=== PATIENT | male | born 1950 | race Caucasian/White ===

== ENCOUNTER → 2020-09-27 09:17 | Outpatient (BNVA) | payer MEDICARE, SELFPAY | PROVIDERS: PCP Internal Medicine Endocrinology, Diabetes & Metabolism; Visit Provider Urology | DX: N40.1 Benign prostatic hyperplasia with lower urinary tract symptoms (principal); N13.8 Other obstructive and reflux uropathy; R35.1 Nocturia; R39.12 Poor urinary stream | CPT/HCPCS: Q3014 ==

== ENCOUNTER → 2021-09-27 09:28 | Outpatient (BNVA) | payer MEDICARE, SELFPAY | PROVIDERS: Visit Provider Urology | DX: R39.12 Poor urinary stream (principal); R35.1 Nocturia; N40.1 Benign prostatic hyperplasia with lower urinary tract symptoms; N13.8 Other obstructive and reflux uropathy | CPT/HCPCS: 51798; 99212 ==

== ENCOUNTER → 2022-10-31 08:46 | Outpatient (BNVA) | payer MEDICARE, SELFPAY | PROVIDERS: PCP Internal Medicine Endocrinology, Diabetes & Metabolism; Visit Provider Urology | DX: N40.1 Benign prostatic hyperplasia with lower urinary tract symptoms (principal); N13.8 Other obstructive and reflux uropathy; R35.1 Nocturia; Z79.899 Other long term (current) drug therapy | CPT/HCPCS: 51798; 99212 ==

== ENCOUNTER 2023-11-03 08:22 | Outpatient (AMB) | payer MEDICARE, SELFPAY ==
--- NOTE | 2023-11-03 08:29 | A.OFFVIS_ITS ---
Intake Intake Visit Reasons: 1Y PSA(set)Confirmed Intake Note: Patient is Present for Follow Up PSA/PVR Urology Medication: Tamsulosin Antibiotic Allergies: None Blood Thinners: None Confirmed Pharmacy: [facility] Patient states no medication changes other than Lisinipril which he is awaiting on Provider on that medication. PVR: 50 Allergies No Known Allergies Allergy (Verified 11/03/23 08:33) Medication List - Last Reconciled 11/03/23 by Hugo Coats MD amlodipine 5 mg PO DAILY atorvastatin 80 mg PO DAILY carvedilol 12.5 mg PO BID duloxetine 60 mg PO DAILY fluticasone propionate 50 mcg/actuation intranasal glipizide 5 mg PO BID glipizide ER 2.5 mg PO DAILY glipizide ER mg PO ibuprofen 800 mg PO TID levetiracetam 500 mg PO TID lisinopril 40 mg PO DAILY metformin 1,000 mg PO BID nitroglycerin mg sublingual pantoprazole 40 mg PO DAILY sitagliptin phosphate 100 mg PO DAILY tamsulosin 0.8 mg (2 x 0.4 mg) PO BEDTIME 90 days triamcinolone acetonide 0.1% appl topical BID HPI HPI Comments History of Present Illness Details Beryl OSHEA is a very pleasant male. He is a patient of Dr Ruiz. He is seen for the following urologic conditions - lower urinary tract symptoms Yearly review Continues with tamsulosin 0.8 mg Effective emptying PVR 50cc Primary care is retiring JAMES 1+ Lower Urinary Tract Symptoms: Background diabetes Current visit is for further evaluation of, lower urinary tract symptoms, predominate obstructive symptoms. Current treatment includes medication, alpha jessica, tamsulosin. Prostate Symptom Score 1/17 , Moderate (9-19), Bother 3 09/18 , Mild (0-8), Bother 2 - 09/20 Mild Symptoms include /18 , weak stream, nocturia (>2), and are stable 09/18 , weak stream, nocturia (>2), and are stable. Prior Prostate Score unknown. PSA < 2.5, 09/19 0.2. 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 Diabetes mellitus, type II Insomnia Hypercholesterolemia Prostate nodule Microscopic hematuria Erectile dysfunction Kidney cysts Weak urinary stream Benign prostatic hyperplasia with lower urinary tract symptoms Nocturia Surgical History History of surgery Review of Systems Const Denies chills and Denies fever(s) Card Reports no additional complaints and Denies syncope Resp Denies cough GI Denies abdominal pain and Denies heartburn Reports as per HPI and Denies change in libido Neuro Denies syncope Psych Denies change in libido Endo Denies change in libido Physical Exam Const General: cooperative, healthy appearing, comfortable and no acute distress Orientation/consciousness: patient oriented x3 HEENT Face and sinus: Yes normal facial exam Mouth: moist mucous membranes Neck Neck: Yes normal visual inspection, Yes full ROM and Yes trachea midline Chest Chest palpation & inspection: normal inspection of the chest Resp Effort & Inspection: normal respiratory effort, able to speak in complete sentences and no respiratory distress GI Inspection: Yes normal to inspection Rectal Exam - Male: Yes normal sphincter tone and Yes prostate normal Male General Exam: Yes normal external exam Penis: normal penis and circumcised Meatus: meatus normal Scrotum: scrotum normal Testes: Testes normal Back/Spine/Pelvis Cervical Spine: normal cervical lordosis Thoracic/Lumbar Spine: thoracic and lumbar spine normal to inspection Skin General skin exam: no rashes or lesions noted Neuro General: patient oriented x3, gait normal, tone normal and moves all extremities Extrem General: Yes normal to inspection and Yes capillary refill normal Office Procedures Post Void Residual Post Residual Void Post Void Residual (PVR): 50 59949-Wfju Void Residual by ultrasound Assessment & Plan Assessment & Plan (1) Weak urinary stream: Code(s): R39.12 - Poor urinary stream (2) Nocturia more than twice per night: Code(s): R35.1 - Nocturia (3) BPH w urinary obs/LUTS: Code(s): N40.1 - Benign prostatic hyperplasia with lower urinary tract symptoms; N13.8 - Other obstructive and reflux uropathy Plan Twelve month follow-up Orders: Orders Prostate Specific Antigen 364 Days N13.8 - Other obstructive and reflux uropathy, N40.1 - Benign prostatic hyperplasia with lower urinary tract symptoms AMB Post Void Residual by ultrasound Today N13.8 - Other obstructive and reflux uropathy, N40.1 - Benign prostatic hyperplasia with lower urinary tract symptoms Patient Instructions: Imaging studies, laboratory and physical exam results were discussed and reviewed in detail. No major barriers to patient understanding were identified. An opportunity to ask questions regarding the treatment plan was provided. All questions were answered. The patient expressed understanding and agreement with the above treatment plan. The patient is aware they should contact our office by phone for worsening of their current condition or the appearance of new urologic symptoms. Compliance is encouraged with any medications and followup testing that is ordered. It is a privilege to participate in the urologic care of your patient. If you have any questions or concerns regarding treatment for the above conditions, or other urologic issues, please do not hesitate to contact me. The office telephone contact is [phone]. This note is constructed using voice recognition software. While every effort has been made to ensure accuracy affiliate marketing specialist errors may have been included. Yours sincerely, Dr Hugo Coats MD, PADILLA [facility] - Urology Providers of Expert, Compassionate Care for the Genitourinary System Coding Level of Care Code Est Pt Level 4 (44438) Diagnoses Weak urinary stream R39.12 Nocturia more than twice per night R35.1 BPH w urinary obs/LUTS N40.1; N13.8 CPT Codes Post Residual Void - PVR CPT Code: 27950-Skjc Void Residual by ultrasound ([id number])
== END 2023-11-03 08:57 | disposition home or self-care (01) ==
PROVIDERS: Visit Provider Urology
DX: N40.1 Benign prostatic hyperplasia with lower urinary tract symptoms (principal); R39.12 Poor urinary stream; R35.1 Nocturia; N13.8 Other obstructive and reflux uropathy
CPT/HCPCS: 99213

== ENCOUNTER → 2023-11-03 08:22 | Outpatient (BNVA) | payer MEDICARE, SELFPAY | PROVIDERS: Visit Provider Urology | DX: N40.1 Benign prostatic hyperplasia with lower urinary tract symptoms (principal); N13.8 Other obstructive and reflux uropathy; R39.12 Poor urinary stream; R35.1 Nocturia | CPT/HCPCS: 51798; 99212 ==

== ENCOUNTER 2024-11-03 08:23 | Outpatient (AMB) | payer MEDICARE, SELFPAY ==
--- NOTE | 2024-11-03 08:25 | MHC.OFFVIS ---
Intake Visit Reasons: 1y/PVR Intake Note: Pt presents to the office today for a 1 year follow up/PVR. Allergies No Known Allergies Allergy (Verified 11/03/24 08:25) HPI Comments Details: Beryl OSHEA is a very pleasant male. He is a patient of Dr Saleh. He is seen for the following urologic conditions - lower urinary tract symptoms Yearly review Continues with tamsulosin 0.8 mg Effective emptying PVR 0 cc Has new Primary Care seeing Dr. Aguilar Low PSA Lower Urinary Tract Symptoms: Background diabetes Current visit is for further evaluation of, lower urinary tract symptoms, predominate obstructive symptoms. Current treatment includes medication, alpha jessica, tamsulosin. Prostate Symptom Score 09/16 , Moderate (9-19), Bother 3 09/18 , Mild (0-8), Bother 2 - 09/20 Mild Symptoms include 09/17 , weak stream, nocturia (>2), and are stable 09/18 , weak stream, nocturia (>2), and are stable. Prior Prostate Score unknown. 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 Diabetes mellitus, type II Insomnia Hypercholesterolemia Prostate nodule Microscopic hematuria Erectile dysfunction Kidney cysts Weak urinary stream Benign prostatic hyperplasia with lower urinary tract symptoms Nocturia Surgical History History of surgery Review of Systems Const Denies chills and Denies fever(s) Card Reports no additional complaints and Denies syncope Resp Denies cough GI Denies abdominal pain and Denies heartburn Reports as per HPI and Denies change in libido Neuro Denies syncope Psych Denies change in libido Endo Denies change in libido Physical Exam Const General: cooperative, healthy appearing, comfortable and no acute distress Orientation/consciousness: patient oriented x3 HEENT Face and sinus: Yes normal facial exam Mouth: moist mucous membranes Neck Neck: Yes normal visual inspection, Yes full ROM and Yes trachea midline Chest Chest palpation & inspection: normal inspection of the chest Resp Effort & Inspection: normal respiratory effort, able to speak in complete sentences and no respiratory distress GI Inspection: Yes normal to inspection Back/Spine/Pelvis Cervical Spine: normal cervical lordosis Thoracic/Lumbar Spine: thoracic and lumbar spine normal to inspection Skin General skin exam: no rashes or lesions noted Neuro General: patient oriented x3, gait normal, tone normal and moves all extremities Extrem General: Yes normal to inspection and Yes capillary refill normal Office Procedures Post Void Residual Post Residual Void Post Void Residual (PVR): 0 45116-Fykt Void Residual by ultrasound Results AMB Urinalysis, Automated UA Leukoctes 0 Hector/uL Last Edit by Christy Vivar CMA on 11/03/24 08:33 UA Nitrite Negative Last Edit by Christy Vivar CMA on 11/03/24 08:33 UA Urobilinogen 0.2 mg/dL Last Edit by Christy Vivar CMA on 11/03/24 08:33 UA Protein 30 mg/dL Last Edit by Christy Vivar CMA on 11/03/24 08:33 UA pH 5.5 Last Edit by Christy Vivar CMA on 11/03/24 08:33 UA Blood 0 Yifan/uL Last Edit by Christy Vivar CMA on 11/03/24 08:33 UA Specific [place] 1.030 Last Edit by Christy Vivar CMA on 11/03/24 08:33 UA Ketone Positive Last Edit by Christy Vivar CMA on 11/03/24 08:33 UA Bilirubin 1 mg/dL Last Edit by Christy Vivar CMA on 11/03/24 08:33 UA Glucose 0 mg/dL Last Edit by Christy Vivar CMA on 11/03/24 08:33 Results Reviewed Results Reviewed: Laboratory Last Values Urine pH (Auto) 5.5 11/03/24 08:27 Specific [place] (Auto) 1.030 11/03/24 08:27 Urine Protein (Auto) 30 mg/dL 11/03/24 08:27 Glucose (UA)(Auto) 0 mg/dL 11/03/24 08:27 Urine Ketones (Auto) Positive 11/03/24 08:27 Urine Blood (Auto) 0 Yifan/uL 11/03/24 08:27 Urine Nitrite (Auto) Negative 11/03/24 08:27 Urine Bilirubin (Auto) 1 mg/dL 11/03/24 08:27 Urine Urobilinogen (Auto) 0.2 mg/dL 11/03/24 08:27 Leukocyte Esterase (Auto) 0 Hector/uL 11/03/24 08:27 Assessment & Plan Assessment & Plan (1) BPH w urinary obs/LUTS: Code(s): N40.1 - Benign prostatic hyperplasia with lower urinary tract symptoms; N13.8 - Other obstructive and reflux uropathy Category: Medical (2) Nocturia more than twice per night: Code(s): R35.1 - Nocturia Category: Medical Plan Twelve month follow-up PVR office Orders: Orders AMB Urinalysis Automated Today Z13.9 - Encounter for screening, unspecified AMB Post Void Residual by ultrasound Today N13.8 - Other obstructive and reflux uropathy, N40.1 - Benign prostatic hyperplasia with lower urinary tract symptoms Patient Instructions: This note is constructed using voice recognition software. While every effort has been made to ensure accuracy landing signal officer errors may have been included. Imaging studies, laboratory and physical exam results were discussed and reviewed in detail. No major barriers to patient understanding were identified. An opportunity to ask questions regarding the treatment plan was provided. All questions were answered. The patient expressed understanding and agreement with the above treatment plan. The patient is aware they should contact our office by phone for worsening of their current condition or the appearance of new urologic symptoms. Compliance is encouraged with any medications and followup testing that is ordered. It is a privilege to participate in the urologic care of your patient. If you have any questions or concerns regarding treatment for the above conditions, or other urologic issues, please do not hesitate to contact me. The office telephone contact is [phone]. Sincerely, Dr Hugo Coats MD, PADILLA [facility] - Urology Compassionate Specialist Care for the Genitourinary System Coding Level of Care Code Est Pt Level 4 (64113) Diagnoses BPH w urinary obs/LUTS N40.1; N13.8 Nocturia more than twice per night R35.1 CPT Codes Post Residual Void - PVR CPT Code: 75284-Rosr Void Residual by ultrasound ([id number])
--- OUTSIDE RECORDS SUMMARY | 2024-11-03 08:47 | XMS_ITS | Patient Health Record ---
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 Name Role Phone Gabriella Ramey MD, Keith Primary Care Provider Unavail able Suzette Ortega Unavailable [phone] Allergies Allergen (clinical drug ingredient) Drug/Non Drug Allergy documented on EMR Reaction Allergy Type Onset Date Status bee pollen Bee Pollen Unknown Drug Allergy Activ e Bee Sting Unknown Allergy Active Results Component Value Reference Range Notes HEMOGLOBIN A1C (GLYCOHEMOGLO BIN) Reviewed date:06/14/2024 08:06:21 AM Interpretation: Performing Lab: Notes/Report: TOTAL HEMOGLOBIN (HGBA1C) 7.3 HEMOGLOBIN A1C (GLYCOHEMOGLO BIN) Reviewed date:06/14/2024 08:03:13 AM Interpretation: Performing Lab: Notes/Report: TOTAL HEMOGLOBIN (HGBA1C) 7.3 HEMOGLOBIN A1C (GLYCOHEMOGLO BIN) Reviewed date:09/13/2024 08:08:13 AM Interpretation: Performing Lab: Notes/Report: HEMOGLOBIN A1C % (HH) 7.3 Reason For Referral No Information Medications Medication SIG (Take, Route, Frequency, Duration) Notes Start Date End Date Status Metformin & Diet Manage Prod Active Clopidogrel Bisulfate Not-Taking Januvia 100 MG 1 tablet Orally Once a day Active oxyCODONE ER Not-Skyler ing Aspirin Active Spironolactone 25 MG 1 tablet Orally Onc e a day Active Amlodipine & Diet Manage Prod Active Pantoprazole Sodium 40 MG Orally Active DULoxetine HCl 60 MG Orally Active Farxiga 10 MG 1 tablet Orally Once a day Not-Taking Carvedilol 12.5 MG Orally A ctive Entresto 49-51 MG 1 tablet Orally Twic e a day Not-Taking Iron Active Lisinopril 40 MG 1 tablet Orally Once a day Not-Taking glipiZIDE 5 MG as directed Orally twice a day Active Cephalexin 500 MG 1 capsule Orally anali ry 12 hours for 10 days Not-Taking Extra Depth Orthopedic Shoes (1 Pair) with Customized Heat Molded Multidensity Innersoles (3 Pair) as directed Dx: NIDDM/Polyneuropathy (E11.42), Hammertoe Foot Deformity (M20.41,M20.42), Preulcerative Skin Lesion(s) (L85.1 Active Atropine Sulfate Act ruma Extra Depth Orthopedic Shoes (1 Pair) with Customized Heat Molded Multidensity Innersoles (3 Pair) as directed Dx: NIDDM/Polyneuropathy (E11.42), Hammertoe Foot Deformity (M20.41,M20.42), Preulcerative Skin Lesion(s) (L85.1 Active Atorvastatin Calcium 80 MG 1 tablet Orally Once a day Active Tamsulosin HCl Activ e Carisoprodol 350 MG Orally Active Immunizations Vaccine Route Administration Date Status Comme nts COVID-19 Moderna Vaccine Unknown 07/23/2021 Administered 1st 10/29/2020 2nd 11/27/2020 Influenza Unknown 04/16/2017 Administered Influenza Unknown 05/27/2019 Administered Influenza Unknown 07/16/2023 Administered Social History Tobacco Use: Social History Observation Description Date Details (start date - stop date) Former Smoker NA - NA Tobacco Use/Smoking Question Answer Notes Are you a: former smoker Additional Findings: Tobacco Non-User Cu rrent non-smoker,Ex-moderate cigarette smoker (10-19/day) Alcohol Screen Question Answer Notes Did you have a drink contain ing alcohol in the past year? Yes How often did you have a dri nk containing alcohol in the past year? Monthly or less (1 point) Points 1 Interpretation Negative Tobacco use other than smoking: Question Answer Notes Are you an other tobacco user? No Problems Problem Type SNOMED Code ICD Code Onset Dates Problem Status W/U Status Risk Notes Problem Acquired hammer toe of right foot (437361527414789 5) Other hammer toe(s) (acquired), right foot (M20.41) Active confirmed Response to treatment - Unchanged Problem Acquired hallux valgus (51567100) Hallux valgus (acquired), left foot (M20.12) Active confirmed Problem Acquired hammer toe of left foot (583850744955866 3) Other hammer toe(s) (acquired), left foot (M20.42) Active confirmed Response to treatment - Unchanged Problem Localized, primary osteoarthritis of the ankle and/or foot (399058970) Primary osteoarthritis, right ankle and foot (M19.071) Active confirmed Problem Localized, primary osteoarthritis of the ankle and/or foot (736768436) Primary osteoarthritis, left ankle and foot (M19.072) Active confirmed Problem Acquired hallux valgus (32938028) Hallux valgus (acquired), right foot (M20.11) Active confirmed Problem Ulcer of toe (464069263) Non-pressure chronic ulcer of other part of left foot limited to breakdown of skin (L97.521) Active confirmed Problem Polyneuropathy due to type 2 diabetes mellitus (433358361) Type 2 diabetes mellitus with diabetic polyneuropathy (E11.42) Active confirmed Problem Ulcer of toe of right foot (disorder) (513478528981729 01) Skin ulcer of toe of right foot, limited to breakdown of skin (L97.511) Active confirmed Problem Osteoarthritis of midtarsal joint of right foot (991470006120261 6) Osteoarthritis of midtarsal joint of right foot (M19.071) Active confirmed Vital Signs Blood pressure diastolic 80 mm Hg 09/13/2024 Height 6ft in 09/13/2024 Blood pressure systolic 130 mm Hg 09/13/2024 Weight 212 lbs 09/13/2024 BMI 28.75 kg/m2 09/13/2024 Procedures Procedure Date Ordered Date Performed Result Body Sit e 80207-VLLNIPP NAIL, 6 OR MORE 12/02/2023 N/A 90854-Jfrhmdur Plate 12/02/2023 N/A 32570-Hugttxrr Plate Each Additional 12/02/2023 N/A 62972-STVZ SKIN LESIONS, OVER 4 12/02/2023 N/A 39800-XNYUCKP NAIL, 6 OR MORE 03/15/2024 N/A 15587-CBJG SKIN LESIONS, OVER 4 03/15/2024 N/A 99135-YDJAQHW NAIL, 6 OR MORE 06/14/2024 N/A 09280-Nrhljruf Plate 06/14/2024 N/A 91701-PWNB SKIN LESIONS, OVER 4 06/14/2024 N/A 07308-VNGILVE NAIL, 6 OR MORE 09/13/2024 N/A 52221-NSHQ SKIN LESIONS, OVER 4 09/13/2024 N/A Encounters Encounter Location Date Provider Diagnosis [address] [place] [address] 12/02/2023 Suzette Black Type 2 diabetes wilner itus with diabetic polyneuropathy E11.42 ; Other hammer toe(s) (acquired), right foot M20.41 ; Tinea unguium B35.1 ; Other hammer toe(s) (acquired), left foot M20.42 and Ingrown nail L60.[address] [place] [address] 03/15/2024 Suzette Black Type 2 diabetes wilner itus with diabetic polyneuropathy E11.42 ; Tinea unguium B35.1 ; Pain in right foot M79.671 ; Pain in right ankle and joints of right foot M25.571 ; Bursitis of right foot M77.51 and 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 [place] [address] 06/14/2024 Suzette Black Type 2 diabetes wilner itus with diabetic polyneuropathy E11.42 ; Tinea unguium B35.1 ; Pain in right foot M79.671 ; Pain in right ankle and joints of right foot M25.571 ; Bursitis of right foot M77.51 ; 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 and Ingrown nail L60.[address] [place] [address] 09/13/2024 Suzette Black Type 2 diabetes wilner itus with diabetic polyneuropathy E11.42 and Tinea unguium B35.1 Assessments Encounter Date Diagnosis (ICD Code) Assessment Notes Treatment Notes Treatment Clinical Notes Section Notes 12/02/2023 Other hammer toe(s) (acquired), right foot (ICD-10 - M20.41) Response to treatment - Unchanged Patient Educated with: DIABETIC FOOT CARE INSTRUCTIONS. pdf (DIABETIC FOOT CARE INSTRUCTIONS. pdf) 12/02/2023 Type 2 diabetes mellitus with diabetic polyneuropathy (ICD-10 - E11.42) 03/15/2024 Tinea unguium (ICD-10 - B35.1) 03/15/2024 Type 2 diabetes mellitus with diabetic polyneuropathy (ICD-10 - E11.42) 06/14/2024 Tinea unguium (ICD-10 - B35.1) 06/14/2024 Type 2 diabetes mellitus with diabetic polyneuropathy (ICD-10 - E11.42) 09/13/2024 Tinea unguium (ICD-10 - B35.1) 09/13/2024 Type 2 diabetes mellitus with diabetic polyneuropathy (ICD-10 - E11.42) 06/14/2024 Pain in right foot (ICD-10 - M79.671) 03/15/2024 Pain in right foot (ICD-10 - M79.671) 12/02/2023 Tinea unguium (ICD-10 - B35.1) 12/02/2023 Other hammer toe(s) (acquired), left foot (ICD-10 - M20.42) Response to treatment - Unchanged 03/15/2024 Pain in right ankle and joints of right foot (ICD-10 - M25.571) 06/14/2024 Pain in right ankle and joints of right foot (ICD-10 - M25.571) 03/15/2024 Bursitis of right foot (ICD-10 - M77.51) 06/14/2024 Bursitis of right foot (ICD-10 - M77.51) 12/02/2023 Ingrown nail (ICD-10 - L60.0) 06/14/2024 Osteoarthritis of midtarsal joint of right foot (ICD-10 - M19.071) 03/15/2024 Osteoarthritis of midtarsal joint of right foot (ICD-10 - M19.071) 06/14/2024 Ingrown nail (ICD-10 - L60.0) 03/15/2024 Other Plan Of Treatment Pending Test Test Name Order Date 93509-TOAKAXA NAIL, 6 OR MORE 10/25/2019 86345-AVNXAHT NAIL, 6 OR MORE 04/24/2021 36272-YHWTVMH NAIL, 6 OR MORE 08/09/2021 74668-WSILEUR NAIL, 6 OR MORE 11/22/2021 79938-EJLSLQW NAIL, 6 OR MORE 02/25/2022 28864-XRCENZL NAIL, 6 OR MORE 11/25/2022 95029-CKVBCSF NAIL, 6 OR MORE 02/24/2023 09757-FHBNZNB NAIL, 6 OR MORE 05/26/2023 06282-QXURLZT NAIL, 6 OR MORE 09/02/2023 69006-UUCDDVF NAIL, 6 OR MORE 12/02/2023 90558-CQLRNUT NAIL, 6 OR MORE 03/15/2024 96140-BPPWCNR NAIL, 6 OR MORE 06/14/2024 34645-EPPBNMB NAIL, 6 OR MORE 09/13/2024 41613-Cduomrby Plate 02/24/2023 72106-Hnilfnyj Plate 06/14/2024 71175-Kfpqyrvy Plate 12/02/2023 24918-Utdxvicd Plate 11/25/2022 95829-Ebxkgpjq Plate 08/09/2021 59283-Heqnrorn Plate 02/25/2022 14769-Umwscxqt Plate 04/24/2021 76438-Tagngmmo Plate Each Additional 25313-Ygtlyyxa Plate Each Additional 10/2023 81796- Debride <25 sq cm 04/07/2023 51820- Debride <25 sq cm 11/22/2021 38842- Debride <25 sq cm 05/07/2021 40682-HHSC SKIN LESIONS, OVER 4 05/26/20 23 01657-AJVB SKIN LESIONS, OVER 4 12/02/19 24 21108-JWYS SKIN LESIONS, OVER 4 09/02/19 24 69834-EWCU SKIN LESIONS, OVER 4 03/15/20 24 92363-EMVP SKIN LESIONS, OVER 4 06/14/20 24 94137-SVFY SKIN LESIONS, OVER 4 09/13/19 25 48095-WYKP SKIN LESIONS, 2 TO 4 02/25/20 23 96759-KZCR SKIN LESIONS, 2 TO 4 08/09/20 21 79971-ENCM SKIN LESIONS, 2 TO 4 11/23/19 22 08334-VQBS SKIN LESIONS, 2 TO 4 10/25/19 41823-YCSZ SKIN LESIONS, 2 TO 4 04/24/20 21 67441-SCOG SKIN LESIONS, 2 TO 4 11/26/19 23 63284-ZDQN SKIN LESIONS, 2 TO 4 02/26/20 22 Next Appt Details Provider Name:Suzette Ortega , 12/20/2024 08:00:00 AM, [address], [place], [address], Insurance Providers Payer Name Payer Address Payer Phone Subscriber Number Group Number Insured Name Patient Relationship to Insured Coverage Start Date Coverage End Date Medicare National Govt [employer] [address] [place] [address] [id number] Beryl Briceño Self - patient is the insured [employer] [address] [place] [address] [phone] [id number] Beryl Briceño Self - patient is the insured Medical (General) History Medical History History ICD Code Anemia Back,Hip,and Knee pain Diabetes mellitus Heart disease High blood pressure Measles Chicken pox Joint implants/screws Surgical History Surgery Date(Month/Year) skin cancer 2017 nose sx gall bladder 07/2020 cataract removal left and right 12/2022 heart defibralator 12/2022 Hospitalization History Reason Date(Month/Year) [facility] covid 07/2022 [facility] heart issues 07/2022 [facility] believed he had a heart attack 09/01 022
--- OUTSIDE RECORDS SUMMARY | 2024-11-03 08:47 | XMS_ITS ---
Author Organization 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 Role Phone Keith Quiroz Jr, MD Primary Care Provider Unavail able Black, Suzette Unavailable [phone] Allergies Allergen (clinical drug ingredient) Drug/Non Drug Allergy documented on EMR Reaction Allergy Type Onset Date Status bee pollen Bee Pollen Unknown Drug Allergy Activ e Bee Sting Unknown Allergy Active REASON FOR VISIT At Risk Footcare Medications Medication SIG (Take, Route, Frequency, Duration) Notes Start Date End Date Status DULoxetine HCl 60 MG Orally Active Carvedilol 12.5 MG Orally A ctive Iron Active glipiZIDE 5 MG as directed Orally twice a day Active Carisoprodol 350 MG Orally Active Clopidogrel Bisulfate Not-Taking Aspirin Active Amlodipine & Diet Manage Prod Active Atropine Sulfate Act ruma Atorvastatin Calcium 80 MG 1 tablet Orally Once a day Active oxyCODONE ER Not-Skyler ing Farxiga 10 MG 1 tablet Orally Once a day Not-Taking Entresto 49-51 MG 1 tablet Orally Twic e a day Not-Taking Lisinopril 40 MG 1 tablet Orally Once a day Not-Taking Cephalexin 500 MG 1 capsule Orally anali ry 12 hours for 10 days Not-Taking Spironolactone 25 MG 1 tablet Orally Onc e a day Active Pantoprazole Sodium 40 MG Orally Active Extra Depth Orthopedic Shoes (1 Pair) with Customized Heat Molded Multidensity Innersoles (3 Pair) as directed Dx: NIDDM/Polyneuropathy (E11.42), Hammertoe Foot Deformity (M20.41,M20.42), Preulcerative Skin Lesion(s) (L85.1 Active Extra Depth Orthopedic Shoes (1 Pair) with Customized Heat Molded Multidensity Innersoles (3 Pair) as directed Dx: NIDDM/Polyneuropathy (E11.42), Hammertoe Foot Deformity (M20.41,M20.42), Preulcerative Skin Lesion(s) (L85.1 Active Tamsulosin HCl Activ e Metformin & Diet Manage Prod Active Januvia 100 MG 1 tablet Orally Once a day Active Social History Tobacco Use: Social History Observation [...] Problem Status W/U Status Risk Notes Problem Osteoarthritis of midtarsal joint of right foot (8231102922238794 ) Osteoarthritis of midtarsal joint of right foot (M19.071) Active confirmed Vital Signs Height 6ft in 09/13/2024 Weight 212 lbs 09/13/2024 BMI 28.75 kg/m2 09/13/2024 Blood pressure systolic 130 mm Hg 09/13/19 25 Blood pressure diastolic 80 mm Hg 025 Procedures Procedure Date Ordered Date Performed Result Body Sit e 59719-[id number] NAIL, 6 OR MORE 09/13/2024 N/A 73712-[id number] SKIN LESIONS, OVER 4 09/13/2024 N/A Encounters Encounter Location Date Provider Diagnosis [facility] [address] [address] 09/13/2024 Suzette Black Type 2 diabetes wilner itus with diabetic polyneuropathy E11.42 and Tinea unguium B35.1 Assessments Encounter Date Diagnosis (ICD Code) Assessment Notes Treatment Notes Treatment Clinical Notes Section Notes 09/13/2024 Type 2 diabetes mellitus with diabetic polyneuropathy (ICD-10 - E11.42) 09/13/2024 Tinea unguium (ICD-10 - B35.1) Plan Of Treatment Pending Test Test Name Order Date [id number] NAIL, 6 OR MORE 09/13/2024 42378-YXVA SKIN LESIONS, OVER 4 09/13/19 Next Appt Details Follow Up: 3 Months, Reason: Provider Name:Suzette Ortega , 12/20/2024 08:00:00 AM, [address] [facility], [place], [address], Procedure Notes * Category Sub-Category Detail Notes Debride Nail 6-10 Nail debridement Due to the cl inical pathology outlined in the exam findings, performance of this nail treatment is medically necessary as its management by an unskilled/untrained nonprofessional would put this patients foot and overall health at risk. Therefore, debridement to affected nail(s), as described in exam ( T4, T3, T2 T7 T8, T9___ ), was performed exclusively by the physician of record to reduce/remove overall nail length, girth, thickness, subungual debris, and necrotic tissue, by manual and/or electrical means through the use of a nail nipper and/or dremel-type surface grinder, to a more viable healthy nail plate or bed tissue 6-10 nails in total. Silver nitrate was used for any petechial bleeding as necessary. Definitive antifungal treatment options, both pharmaceutical and surgical, have been reviewed and discussed with the patient. The patient solely prefers the use of intermittent/as needed professional debridement services for their nail condition and understands the need for additional periodic treatments to maintain effectiveness in symptomatic relief - 25616 Keratoma Treatment Parring or Cutting o f Benign Hyperkeratotic Lesion(s) (-57) More than 4 Lesions - Due to the at risk nature of the patients medical condition as documented in the exam findings, performance of this keratoderma treatment is medically necessary as its management by an unskilled/untrained nonprofessional would put this patients foot and overall health at risk. Therefore, the benign hyperkeratotic lesions, ( 5_ ) in total, locations as stated and described in the exam ( SUB MTH (s),5 B/L, 1, B/L , , T5 ), were pared, and/or cut utilizing a sterile 15 blade, tissue nippers, and/or power dremel instrumentation by the physician of record - [id number] Progress Notes * Roxanne OSHEAOB:1950 (74 yo M)Acc No.[id number]:09/13/2024 Progress Note Patient:Beryl GUO Provider:?Suzette Ortega DPM :1950???Age:74 Y???Sex:Male Mika e:09/13/2024 Address:[address] [place] [id number] Pcp:Keith Quiroz Jr, MD Subjective: * Chief Complaints: * ???At Risk Footcare * HPI: ???At Risk footcare:?Pt States Last PCP Visit:?Date?08/17/2024 * ROS:?General/Constitutional:?Nausea?denies.?Vomiting?denies.?Hunger Thirst?denies.?Loss appetite?denies.?Chills?denies.?Fatigue?denies.?Fever?denies.?Night Sweats?denies.?Unexplained weight loss?denies.?Unexplained weight gain?denies.?HEENTM:?Dentures?denies.?Dizziness?denies.?Glasses/contacts?admits.?Retinopathy?den ies.?Blurred/double vision?denies.?TMJ?denies.?Discharge/drainage?denies.?Implants?denies.?Sore throat?denies.?Dental implants?denies.?Hard of hearing ?denies.?Difficulty chewing/swallowing/speaking?denies.?Nose bleeds?denies.?Sore mouth?denies.?Respiratory:?On O xygen?denies.?Pneumonia/pleurisy?denies.?Bronchitis?denies.?Emphysema?denies.?Co ughing?denies.?Cough blood?denies.?Shortness of breath?denies.?Wheezing?denies.?Cardiovascular:?Pacemaker?denies.?MVP?denies.?WPW?denies.?CHF?denies.?Heart attack?denies.?Septal defect?denies.?Rapid beat?denies.?Chest pain ?denies.?Atrial Fib.?denies.?Murmur/Palpitations?denies.?Gastrointestinal:?Hemorrhoids?denies.?Stomach/Abdominal pain?denies.?Dark blood stool?denies.?Irritable bowel ?denies.?Constipation?denies.?Diarrhea?denies.?Hematology:?Swelling?denies.?Clots?denies.?Varicose Veins?denies.?Bruising?denies.?Bleeding problem?denies.?Genitourinary:?Blood urine?denies.?Frequent/Painfu/urination/bladder control?denies.?Kidney stones?denies.?Infection (UTI)?denies.?Nephropathy?denies.?sex trans dis (STD)?denies.?Prostate?denies.?Musculoskeletal:?Hammertoes?, admits.?Bunions?denies.?Back Pain?admits.?Muscle Cramps/ Resting?denies.?Muscle cramps / walking?admits.?Generalized aches and pains?denies.?Weakness?denies.?Integ.:?Mcgill?denies.?Scars?denies.?Corns/calluses?, admits.?Ingrown nails?, admits.?Painful nails?denies.?Open Sores?denies.?Rashes?denies.?Neurologic:?Difficulty sleeping?denies.?Brain disorder?denies.?Numbness?denies.?Balance t rouble?denies.?Confusion?denies.?Fainting/blackouts?denies.?Tingling?denies.?Charly mors?denies.? * Medical History:? * Surgical History:?skin cance r 2017nose sx gall bladder 07/2020cataract removal left and right 12/2022heart defibralator 12/2022 * Hospitalization/Major Diagno stic Procedure:?[facility]ing- believed he had a heart attack heart issues covid 07/2022 * Family History:?Mother: dece ased, foot problems, diagnosed with Other malignant neoplasm of unspecified site.?Father: .?Spouse: alive.? * Social History:?Tobacco Use:?Tobacco Use/Smoking?Are you a:?former smoker ?Additional Findings: Tobacco Non-User?Current non-smoker,Ex-moderate cigarette smoker (10-19/day) ?Tobacco use other than smoking?Are you an other tobacco user??No ???Drugs/Alcohol:?Drugs?Have you used drugs other than those for medical reasons in the past 12 months??No ?Alcohol Screen?Did you have a drink containing alcohol in the past year??Yes ?How often did you have a drink containing alcohol in the past year??Monthly or less (1 point) ?Points?1 ?Interpretation?Negative ???Miscellaneous:?Caffeine: yes, frequency:, , 3-5 cups per day. ?Children: yes. ?Exercise: no. ?Marital status: . ?Occupation: Retired. * Medications:?TakingAmlodipin e & Diet Manage Prod Aspirin Atorvastatin Calcium 80 MG Tablet 1 tablet Orally Once a day Atropine Sulfate Carisoprodol 350 MG Tablet Orally Carvedilol 12.5 MG Tablet Orally DULoxetine HCl 60 MG Capsule Delayed Release Sprinkle Orally glipiZIDE 5 MG Tablet as directed Orally twice a day Iron Januvia 100 MG Tablet 1 tablet Orally Once a day Metformin & Diet Manage Prod Pantoprazole Sodium 40 MG Tablet Delayed Release Orally Spironolactone 25 MG Tablet 1 tablet Orally Once a day Tamsulosin HCl Extra Depth Orthopedic Shoes (1 Pair) with Customized Heat Molded Multidensity Innersoles (3 Pair) as directed Dx: NIDDM/Polyneuropathy (E11.42), Hammertoe Foot Deformity (M20.41,M20.42), Preulcerative Skin Lesion(s) (L85.1 Extra Depth Orthopedic Shoes (1 Pair) with Customized Heat Molded Multidensity Innersoles (3 Pair) as directed Dx: NIDDM/Polyneuropathy (E11.42), Hammertoe Foot Deformity (M20.41,M20.42), Preulcerative Skin Lesion(s) (L85.1 Taking Amlodipine & Diet Manage Prod Taking Aspirin Taking Atorvastatin Calcium 80 MG Tablet 1 tablet Orally Once a day Taking Atropine Sulfate Taking Carisoprodol 350 MG Tablet Orally Taking Carvedilol 12.5 MG Tablet Orally Taking DULoxetine HCl 60 MG Capsule Delayed Release Sprinkle Orally Taking glipiZIDE 5 MG Tablet as directed Orally twice a day Taking Iron Taking Januvia 100 MG Tablet 1 tablet Orally Once a day Taking Metformin & Diet Manage Prod Taking Pantoprazole Sodium 40 MG Tablet Delayed Release Orally Taking Spironolactone 25 MG Tablet 1 tablet Orally Once a day Taking Tamsulosin HCl Taking Extra Depth Orthopedic Shoes (1 Pair) with Customized Heat Molded Multidensity Innersoles (3 Pair) as directed Dx: NIDDM/Polyneuropathy (E11.42), Hammertoe Foot Deformity (M20.41,M20.42), Preulcerative Skin Lesion(s) (L85.1 Taking Extra Depth Orthopedic Shoes (1 Pair) with Customized Heat Molded Multidensity Innersoles (3 Pair) as directed Dx: NIDDM/Polyneuropathy (E11.42), Hammertoe Foot Deformity (M20.41,M20.42), Preulcerative Skin Lesion(s) (L85.1 Not-Taking/PRNEntresto 49- 51 MG Tablet 1 tablet Orally Twice a day Farxiga 10 MG Tablet 1 tablet Orally Once a day Cephalexin 500 MG Capsule 1 capsule Orally every 12 hours Lisinopril 40 MG Tablet 1 tablet Orally Once a day oxyCODONE ER Clopidogrel Bisulfate Medication List reviewed and reconciled with the patientNot-Taking/PRN Entresto 49-51 MG Tablet 1 tablet Orally Twice a day Not-Taking/PRN Farxiga 10 MG Tablet 1 tablet Orally Once a day Not-Taking/PRN Cephalexin 500 MG Capsule 1 capsule Orally every 12 hours Not-Taking/PRN Lisinopril 40 MG Tablet 1 tablet Orally Once a day Not-Taking/PRN oxyCODONE ER Not-Taking/PRN Clopidogrel Bisulfate Medication List reviewed and reconciled with the patient * Allergies:?Bee PollenBee Aggie live[Allergies Verified] Objective: * Vitals:?Ht: 6ft, Wt:212, BMI :28.75, Shoe size: 10, BP:130/80mm Hg, BS: not taken, Ht-cm: 182.88 cm, Wt-k.16 kg. * ???Past Orders: ???Lab:HEMOGLOBIN A1C (GLYCO HEMOGLOBIN) (Order Date - 08/09/2024) (Collection Date & Time - 08/09/2024 08:07 AM) ? Value Reference Range ?HEMOGLOBIN A1C % (HH) 7.3 * Examination: ???Ophthalmology Referral: ?DIABETES EYE EXAM?Procedure Performed:?Yes ?Date of Exam Performed?02/17/2024 ?Diabetic Retinopathy Screening:?Yes ?Findings of Diabetic Eye Exam:?no retinopathy?General Examination: ?GENERAL APPEARANCE:?Reveals a pleasant, alert, well nourished, well- developed, well hydrated individual, who demonstrates proper attention to hygiene/body habitus, and is in no acute distress, Pt serves as own historian for office visit today.?ORIENTED:?person, place, and time.?Vascular: ?DP PULSES (B):?09/03, B/L.?PT PULSES (B):?10/04, B/L.?Neurological: ?SENSORY:?Neurological exam demonstrates, reduced light touch sensation, reduced sharp/dull pin prick discrimination , reduced vibration sensation, 5.07 monofilament test performed at plantar aspects of 5 varied sites per foot shows sensation, absent at Forefoot, B/L,, Pt relates, pins and needles sensation, burning, especially in the evening, B/L.?Nails: ?NAILS are:?Elongated, overgrown, dystrophic, lytic, greater than 3mm thick, discolored and friable with crumbly malodorous subungual debris, with dull to no pain on palpation due to neuropathy, ?T4, T3, T2??T7 T8, T9.?Dermatologic: ?SKIN FINDINGS:?Skin exam reveals normal texture, elasticity, and tugor. There are no masses. The interspaces are clear, Skin exam reveals Keratotic lesion(s) located at, SUB MTH (s),5 B/L, 1, B/L , , T5 ,.? Assessment: * Assessment: 1.?Tinea unguium - B35.1???2 .?Type 2 diabetes mellitus with diabetic polyneuropathy - E11.42 (Primary)??? Plan: * Treatment: 2.?Tinea unguium?Procedure: [id number] NAIL, 6 OR MORE * Procedures:?Debride Nail 6-10:?Nail debridement?Due to the clinical pathology outlined in the exam findings, performance of this nail treatment is medically necessary as its management by an unskilled/untrained nonprofessional would put this patients foot and overall health at risk. Therefore, debridement to affected nail(s), as described in exam ( T4, T3, T2 T7 T8, T9___ ), was performed exclusively by the physician of record to reduce/remove overall nail length, girth, thickness, subungual debris, and necrotic tissue, by manual and/or electrical means through the use of a nail nipper and/or dremel-type surface grinder, to a more viable healthy nail plate or bed tissue 6-10 nails in total. Silver nitrate was used for any petechial bleeding as necessary. Definitive antifungal treatment options, both pharmaceutical and surgical, have been reviewed and discussed with the patient. The patient solely prefers the use of intermittent/as needed professional debridement services for their nail condition and understands the need for additional periodic treatments to maintain effectiveness in symptomatic relief - 63451.?Keratoma Treatment:?Parring or Cutting of Benign Hyperkeratotic Lesion(s)?(-57) More than 4 Lesions - Due to the at risk nature of the patients medical condition as documented in the exam findings, performance of this keratoderma treatment is medically necessary as its management by an unskilled/untrained nonprofessional would put this patients foot and overall health at risk. Therefore, the benign hyperkeratotic lesions, ( 5_ ) in total, locations as stated and described in the exam (?SUB MTH (s),5?B/L,?1,?B/L?, ,?T5??), were pared, and/or cut utilizing a sterile 15 blade, tissue nippers, and/or power dremel instrumentation by the physician of record - [id number].? * Procedure Codes:?32392 DEBRI DE NAIL, 6 OR MORE, Modifiers: XS 66154 TRIM SKIN LESIONS, OVER 4, Modifiers: XS * Preventive Medicine:? ??Screening/Special Tests:?Fall Risk?Screening:?No falls in the past year ?FALLS: Screening for Future Fall Risk?Have you had any falls with injury in the past year??No * Follow Up:?3 Months * Images: * Sign off status: Completed true * Provider:?Suzette Ortega DPM Date:?2024 Generated for Gabbi saavedra/Milka/Rosemary on:?11/03/2024 08:46 AM EST History and Physical Notes * HPI (History of Present Illness) Category Sub-Category Detail Notes Category Not es At Risk footcare Pt States Last PCP Visit: Date: Examination Category Sub-Category Detail Notes Category Not es Ingrown Nail INSPECTION: Neurological SENSORY: Neurological exa m demonstrates, reduced light touch sensation, reduced sharp/dull pin prick discrimination , reduced vibration sensation, 5.07 monofilament test performed at plantar aspects of 5 varied sites per foot shows sensation, absent at Forefoot, B/L,, Pt relates, pins and needles sensation, burning, especially in the evening, B/L TINEL'S COMPRESSION: Dermatologic SKIN FINDINGS: Skin exam reveal s normal texture, elasticity, and tugor. There are no masses. The interspaces are clear, Skin exam reveals Keratotic lesion(s) located at, SUB MTH (s),5 B/L, 1, B/L , , T5 , ULCER: Orthopedic FOOT MORPHOLOGY: General Examination GENERAL APPEARANCE: Reveals a pleasant, alert, well nourished, well-developed, well hydrated individual, who demonstrates proper attention to hygiene/body habitus, and is in no acute distress, Pt serves as own historian for office visit today ORIENTED: person, place, and t yan Ophthalmology Referral DIABETES EYE EXAM Procedure Perform ed:: Yes ?Date of Exam Performed: 02/17/2024 Diabetic Retinopathy Screening:: Yes Findings of Diabetic Eye Exam:: no retin opathy Vascular DP PULSES (B): 1/4, B/L PT PULSES (B): 2/4, B/L Nails NAILS are: Elongated, overg rown, dystrophic, lytic, greater than 3mm thick, discolored and friable with crumbly malodorous subungual debris, with dull to no pain on palpation due to neuropathy, T4, T3, T2 T7 T8, T9
--- OUTSIDE RECORDS SUMMARY | 2024-11-03 08:47 | XMS_ITS ---
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 Name Role Phone Keith Quiroz Jr, MD Primary Care Provider Unavail able Black, Suzette Unavailable [phone] Allergies Allergen (clinical drug ingredient) Drug/Non Drug Allergy documented on EMR Reaction Allergy Type Onset Date Status bee pollen Bee Pollen Unknown Drug Allergy Activ e Bee Sting Unknown Allergy Active REASON FOR VISIT At Risk Footcare, Foot pain, Ingrown Nail Medications Medication SIG (Take, Route, Frequency, Duration) Notes Start Date End Date Status Farxiga 10 MG 1 tablet Orally Once a day Not-Taking oxyCODONE ER Not-Skyler ing Clopidogrel Bisulfate Not-Taking Cephalexin 500 MG 1 capsule Orally anali ry 12 hours for 10 days Not-Taking Lisinopril 40 MG 1 tablet Orally Once a day Not-Taking Tamsulosin HCl Activ e Extra Depth Orthopedic Shoes (1 Pair) with Customized Heat Molded Multidensity Innersoles (3 Pair) as directed Dx: NIDDM/Polyneuropathy (E11.42), Hammertoe Foot Deformity (M20.41,M20.42), Preulcerative Skin Lesion(s) (L85.1 Active Spironolactone 25 MG 1 tablet Orally Onc e a day Active Extra Depth Orthopedic Shoes (1 Pair) with Customized Heat Molded Multidensity Innersoles (3 Pair) as directed Dx: NIDDM/Polyneuropathy (E11.42), Hammertoe Foot Deformity (M20.41,M20.42), Preulcerative Skin Lesion(s) (L85.1 Active Entresto 49-51 MG 1 tablet Orally Twic e a day Not-Taking Pantoprazole Sodium 40 MG Orally Active Januvia 100 MG 1 tablet Orally Once a day Active Metformin & Diet Manage Prod Active glipiZIDE 5 MG as directed Orally twice a day Active Iron Active Atorvastatin Calcium 80 MG 1 tablet Orally Once a day Active Atropine Sulfate Act ruma Carisoprodol 350 MG Orally Active Carvedilol 12.5 MG Orally A ctive DULoxetine HCl 60 MG Orally Active Amlodipine & Diet Manage Prod Active Aspirin Active Social History Tobacco Use: Social History [...] Are you an other tobacco user? No Vital Signs Height 6ft in 06/14/2024 Weight 212 lbs 06/14/2024 BMI 28.75 kg/m2 06/14/2024 Procedures Procedure Date Ordered Date Performed Result Body Sit e 89117-KSBTGLE NAIL, 6 OR MORE 06/14/2024 N/A 22115-Rjpsnont Plate 06/14/2024 N/A 28400-EJOX SKIN LESIONS, OVER 4 06/14/2024 N/A Encounters Encounter Location Date Provider Diagnosis [facility] [address] [address] 06/14/2024 Suzette Black Type 2 diabetes wilner itus with diabetic polyneuropathy E11.42 ; Tinea unguium B35.1 ; Pain in right foot M79.671 ; Pain in right ankle and joints of right foot M25.571 ; Bursitis of right foot M77.51 ; 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 and Ingrown nail L60.0 Assessments Encounter Date Diagnosis (ICD Code) Assessment Notes Treatment Notes Treatment Clinical Notes Section Notes 06/14/2024 Type 2 diabetes mellitus with diabetic polyneuropathy (ICD-10 - E11.42) 06/14/2024 Tinea unguium (ICD-10 - B35.1) 06/14/2024 Pain in right foot (ICD-10 - M79.671) 06/14/2024 Pain in right ankle and joints of right foot (ICD-10 - M25.571) 06/14/2024 Bursitis of right foot (ICD-10 - M77.51) 06/14/2024 Osteoarthritis of midtarsal joint of right foot (ICD-10 - M19.071) 06/14/2024 Ingrown nail (ICD-10 - L60.0) Plan Of Treatment Pending Test Test Name Order Date 58205-YWOINLS NAIL, 6 OR MORE 06/14/2024 79385-Tagxxdop Plate 06/14/2024 78103-XTEL SKIN LESIONS, OVER 4 06/14/20 24 Next Appt Details Follow Up: 2 Weeks,prn, Rylee on: Provider Name:Suzette Ortega , 12/20/2024 08:00:00 AM, [address] [facility], [place], [address], Procedure Notes * Category Sub-Category Detail Notes Nail Avulsion Procedure A fine sterile e levator was placed between the eponychium, nail fold, and nail plate to separate the structures. A sterile nail splitter, and/or sterile 316 blade, was then used to longitudinally section the nail along its entire length through the eponychium to the area under the nail fold. The offending portion of nail was from the nail bed with a rolling action and then removed with a hemostat. No underlying bone was identified. There was minimal bleeding as hemostasis was achieved through the temporary use of either a digital tourniquet or the aforementioned local with epinephrine. A bacitracin sterile dressing was applied. Local wound aftercare instructions were discussed and dispensed. The patient was informed of both conservative and future surgical procedures to prevent recurrence. Tylenol or Motrin was recommended for pain or discomfort (40835) , DIABETES: Matricectomy deferred at this time due to diabetes risk Anesthesia was deferred - NEURO KERI: patient has medically documented neuropathic condition affecting sensation Location Bilateral nail borde r , T6 Debride Nail 6-10 Nail debridement Nail debridem ent performed extensively to reduce/remove overall nail length and girth, subungual debris, and necrotic tissue, by manual and electrical means with use of a nail nipper and/or dremel, to more viable healthy nail plate or bed tissue 6-10. Silver nitrate used for any petechial bleeding as necessary. Patient chooses, no pharmaceutical tx (69531) Keratoma Treatment Parring or Cutting o f Benign Hyperkeratotic Lesion(s) 10489 ( More than 4 Lesions ) - The Benign hyperkeratotic lesions, as described above were pared, and/or cut utilizing a sterile 15 blade, tissue nippers, and/or dremel Progress Notes * Roxanne OSHEAOB:1950 (74 yo M)Acc No.[id number]:06/14/2024 Progress Note Patient:?Beryl Oshea Provider:?Suzette Ortega DPM :1950???Age:74 Y???Sex:Male Mika e:06/14/2024 Address:[address] [place] [address] [place], [place] [id number] Pcp:Keith Quiroz Jr, MD Subjective: * Chief Complaints: * ???At Risk FootcareFoot pain Ingrown Nail * HPI: ???At Risk footcare:?Pt States Last PCP Visit:?Date?01/07/2024 ???Foot Pain:?Nature:?aching, stiffness,?.?Location:?Top, Midfoot, RIGHT.?Duration:?several weeks.?Onset:?denies trauma.?Course:?, improved , at 70 %.?Treatments:?rest/alter normal daily activity ,topical anti-inflammatory cream.? * ROS:?General/Constitutional:?Nausea?denies.?Vomiting?denies.?Hunger Thirst?denies.?Loss appetite?denies.?Chills?denies.?Fatigue?denies.?Fever?denies.?Night Sweats?denies.?Unexplained weight loss?denies.?Unexplained weight gain?denies.?HEENTM:?Dentures?denies.?Dizziness?denies.?Glasses/contacts?admits.?Retinopathy?de nies.?Blurred/double vision?denies.?TMJ?denies.?Discharge/drainage?denies.?Implants?denies.?Sore throat?denies.?Dental implants?denies.?Hard of hearing ?denies.?Difficulty chewing/swallowing/speaking?denies.?Nose bleeds?denies.?Sore mouth?denies.?Respiratory:?On Oxygen?denies.?Pneumonia/pleurisy?denies.?Bronchitis?denies.?Emphysema?denies.?C oughing?denies.?Cough blood?denies.?Shortness of breath?denies.?Wheezing?denies.?Cardiovascular:?Pacemaker?denies.?MVP?denies.?WPW?denies.?CHF?denies.?Heart attack?denies.?Septal defect?denies.?Rapid beat?denies.?Chest pain ?denies.?Atrial Fib.?denies.?Murmur/Palpitations?denies.?Gastrointestinal:?Hemorrhoids?denies.?Stomach/Abdominal pain?denies.?Dark blood stool?denies.?Irritable bowel ?denies.?Constipation?denies.?Diarrhea?denies.?Hematology:?Swelling?denies.?Clots?denies.?Varicose Veins?denies.?Bruising?denies.?Bleeding problem?denies.?Genitourinary:?Blood urine?denies.?Frequent/Painfu/urination/bladder control?denies.?Kidney stones?denies.?Infection (UTI)?denies.?Nephropathy?denies.?sex trans dis (STD)?denies.?Prostate?denies.?Musculoskeletal:?Hammertoes?, admits.?Bunions?denies.?Back Pain?admits.?Muscle Cramps/ Resting?denies.?Muscle cramps / walking?admits.?Generalized aches and pains?denies.?Weakness?denies.?Integ.:?Mcgill?denies.?Scars?denies.?Corns/calluses?denies.?Ingrown nails?, admits.?Painful nails?denies.?Open Sores?denies.?Rashes?denies.?Neurologic:?Difficulty sleeping?denies.?Brain disorder?denies.?Numbness?denies.?Balance trouble?denies.?Confusion?denies.?Fainting/blackouts?denies.?Tingling?denies.?Tr emors?denies.? * Medical History:? * Surgical History:?skin cance [...] , 3-5 cups per day. ?Children: yes. ?no Exercise. ?Marital status: . ?Occupation: Retired. * Medications:?TakingAmlodipin e & Diet Manage Prod Aspirin Atorvastatin Calcium 80 MG Tablet 1 tablet Orally Once a dayAtropine Sulfate Carisoprodol 350 MG Tablet Orally Carvedilol 12.5 MG Tablet Orally DULoxetine HCl 60 MG Capsule Delayed Release Sprinkle Orally glipiZIDE 5 MG Tablet as directed Orally twice a dayIron Januvia 100 MG Tablet 1 tablet Orally Once a dayMetformin & Diet Manage Prod Pantoprazole Sodium 40 MG Tablet Delayed Release Orally Spironolactone 25 MG Tablet 1 tablet Orally Once a dayTamsulosin HCl Extra Depth Orthopedic Shoes (1 Pair) with Customized Heat Molded Multidensity Innersoles (3 Pair) as directed Dx: NIDDM/Polyneuropathy (E11.42), Hammertoe Foot Deformity (M20.41,M20.42), Preulcerative Skin Lesion(s) (L85.1Extra Depth Orthopedic Shoes (1 Pair) with Customized Heat Molded Multidensity Innersoles (3 Pair) as directed Dx: NIDDM/Polyneuropathy (E11.42), Hammertoe Foot Deformity (M20.41,M20.42), Preulcerative Skin Lesion(s) (L85.1Taking Amlodipine & Diet Manage Prod Taking Aspirin Taking Atorvastatin Calcium 80 MG Tablet 1 tablet Orally Once a dayTaking Atropine Sulfate Taking Carisoprodol 350 MG Tablet Orally Taking Carvedilol 12.5 MG Tablet Orally Taking DULoxetine HCl 60 MG Capsule Delayed Release Sprinkle Orally Taking glipiZIDE 5 MG Tablet as directed Orally twice a dayTaking Iron Taking Januvia 100 MG Tablet 1 tablet Orally Once a dayTaking Metformin & Diet Manage Prod Taking Pantoprazole Sodium 40 MG Tablet Delayed Release Orally Taking Spironolactone 25 MG Tablet 1 tablet Orally Once a dayTaking Tamsulosin HCl Taking Extra Depth Orthopedic Shoes (1 Pair) with Customized Heat Molded Multidensity Innersoles (3 Pair) as directed Dx: NIDDM/Polyneuropathy (E11.42), Hammertoe Foot Deformity (M20.41,M20.42), Preulcerative Skin Lesion(s) (L85.1Taking Extra Depth Orthopedic Shoes (1 Pair) with Customized Heat Molded Multidensity Innersoles (3 Pair) as directed Dx: NIDDM/Polyneuropathy (E11.42), Hammertoe Foot Deformity (M20.41,M20.42), Preulcerative Skin Lesion(s) (L85.1Not-Taking/PRNEntresto 49-51 MG Tablet 1 tablet Orally Twice a dayFarxiga 10 MG Tablet 1 tablet Orally Once a dayCephalexin 500 MG Capsule 1 capsule Orally every 12 hoursLisinopril 40 MG Tablet 1 tablet Orally Once a dayoxyCODONE ER Clopidogrel Bisulfate Medication List reviewed and reconciled with the patientNot-Taking/PRN Entresto 49-51 MG Tablet 1 tablet Orally Twice a dayNot-Taking/PRN Farxiga 10 MG Tablet 1 tablet Orally Once a dayNot-Taking/PRN Cephalexin 500 MG Capsule 1 capsule Orally every 12 hoursNot-Taking/PRN Lisinopril 40 MG Tablet 1 tablet Orally Once a dayNot-Taking/PRN oxyCODONE ER Not-Taking/PRN Clopidogrel Bisulfate Medication List reviewed and reconciled with the patient * Allergies:?Bee PollenBee Sti calos[Allergies Verified] Objective: * Vitals:?Ht:6ft, Wt:212, BMI: 28.75, Shoe size:10, BS:128, Ht-cm: 182.88 cm, Wt- k.16 kg. * ???Past Orders: ???Lab:HEMOGLOBIN A1C (GLYCO HEMOGLOBIN) (Order Date - 05/27/2024) (Collection Date - 05/27/2024) ? Value Reference Range ?TOTAL HEMOGLOBIN (HGBA1C) 7.3 * Examination: ???Ophthalmology Referral: ?DIABETES EYE EXAM?Diabetic Retinopathy Screening:?Yes 05/2024?General Examination: ?GENERAL APPEARANCE:?Reveals a pleasant, alert, well nourished, well- developed, well hydrated individual, who demonstrates proper attention to hygiene/body habitus, and is in no acute distress, Pt serves as own historian for office visit today.?ORIENTED:?person, place, and time.?Vascular: ?DP PULSES(B):?09/03, B/L.?PT PULSES(B):?10/04, B/L.?Neurological: ?SENSORY:?Neurological exam demonstrates, reduced light touch [...] (s),5 B/L, 1, B/L , , T5 ,.?Orthopedic: ?FOOT MORPHOLOGY:?exostosis , dorsal , midfoot , Pain on palpation right , approximately 70% LESS.?Ingrown Nail: ?INSPECTION:?Reveals nail incurvation, dull pain on palpation due to neuropathy, groove hypertrophy , Bilateral nail borders , T6.? Assessment: * Assessment: 1.?Tinea unguium - B35.1?2.? Type 2 diabetes mellitus with diabetic polyneuropathy - E11.42?3.?Pain in right foot - M79.671?4.?Pain in right ankle and joints of right foot - M25.571?5.?Bursitis of right foot - M77.51?6.?Osteoarthritis of midtarsal joint of right foot - M19.071?7.?Ingrown nail - L60.0? Plan: * Treatment: 2.?Type 2 diabetes mellitus with diabetic polyneuropathy?Procedure: 67566-OEZP SKIN LESIONS, OVER 4 3.?Ingrown nail?Procedure: 20790-Ihpykqeb Plate * Procedures:?Debride Nail 6-10:?Nail debridement?Nail debridement performed extensively to reduce/remove overall nail length and girth, subungual debris, and necrotic tissue, by manual and electrical means with use of a nail nipper and/or dremel, to more viable healthy nail plate or bed tissue 6-10. Silver nitrate used for any petechial bleeding as necessary. Patient chooses, no pharmaceutical tx (67351).?Keratoma Treatment:?Parring or Cutting of Benign Hyperkeratotic Lesion(s)?95743 ( More than 4 Lesions ) - The Benign hyperkeratotic lesions, as described above were pared, and/or cut utilizing a sterile 15 blade, tissue nippers, and/or dremel.?Nail Avulsion:?Location?Bilateral nail border , T6.?Anesthesia?was deferred - NEUROPATHY: patient has medically documented neuropathic condition affecting sensation.?Procedure?A fine sterile elevator was placed between the eponychium, nail fold, and nail plate to separate the structures. A sterile nail splitter, and/or sterile 316 blade, was then used to longitudinally section the nail along its entire length through the eponychium to the area under the nail fold. The offending portion of nail was from the nail bed with a rolling action and then removed with a hemostat. No underlying bone was identified. There was minimal bleeding as hemostasis was achieved through the temporary use of either a digital tourniquet or the aforementioned local with epinephrine. A bacitracin sterile dressing was applied. Local wound aftercare instructions were discussed and dispensed. The patient was informed of both conservative and future surgical procedures to prevent recurrence. Tylenol or Motrin was recommended for pain or discomfort (26726) , DIABETES: Matricectomy deferred at this time due to diabetes risk.? * Procedure Codes:?37302 DEBRI DE NAIL, 6 OR MORE, Modifiers: XS 56652 Avulsion Plate, Modifiers: T6 48908 TRIM SKIN LESIONS, OVER 4, Modifiers: XS * Preventive Medicine:? ??Counseling:?Discussion:?-12: Office or other outpatient visit for the evaluation and management of an established patient, which required a medically appropriate history and/or examination and STRAIGHTFORWARD level of MEDICAL DECISION MAKING, 1 SELF-LIMITED OR MINOR PROBLEM, MINIMAL- NO AMOUNT/COMPLEXITY OF DATA TO BE REVIEWED/ANALYZED, AND MINIMAL RISK OF COMPLICATION/MORBIDITY. The visit on the day of the encounter encompassed interpreting the data and educating the patient as to the nature of their condition, treatment options available according to their individual PMH, meds, allergies, and overall health/living conditions, as well as any potential risks or complications that may occur from a failure to adhere to, and participate in, the recommended course of therapy. The discussion included a complete verbal, and/or written explanation of the examination results, any x-rays taken, the proposed diagnosis, and outline of the treatment plan. A schedule for future care needs was also explained. The patient verbalized an understanding of the instructions at this time and agreed to be an active participant in their treatment. If the patient should think of any questions or concerns after the visit, I have encouraged the patient to call the office, Given recent successful results to treatment, The patient wishes to continue with the present treatment plan for their condition.? * Follow Up:?2 Weeks,prn * Images: * Sign off status: Completed true * Provider:Krishna Ortega DPM Date:?2023 Generated for Gabbi saavedra/Milka/Rosemary on:?11/03/2024 08:46 AM EST History and Physical Notes * HPI (History of Present Illness) Category Sub-Category Detail Notes Category Not es At Risk footcare Pt States Last PCP Visit: Date: 4 Foot Pain Nature: aching, stiffness, Location: Top, Midfoot, RIGHT Duration: several weeks Onset: denies trauma Course: , improved , at 70 % Treatments: rest/alter normal da angeline activity ,topical anti-inflammatory cream Examination Category Sub-Category Detail Notes Category Not es Ingrown Nail INSPECTION: Reveals nail inc urvation, dull pain on palpation due to neuropathy, groove hypertrophy , Bilateral nail borders , T6 Neurological SENSORY: Neurological exa m demonstrates, reduced [...] , T5 , ULCER: Orthopedic FOOT MORPHOLOGY: exostosis , michelle krista , midfoot , Pain on palpation right , approximately 70% LESS General Examination GENERAL APPEARANCE: Reveals a pleasant, alert, well nourished, well-developed, well hydrated individual, who demonstrates proper attention to hygiene/body habitus, and is in no acute distress, Pt serves as own historian for office visit today ORIENTED: person, place, and t yan Ophthalmology Referral DIABETES EYE EXAM Diabeti c Retinopathy Screening:: Yes 05/2024 Vascular DP PULSES (B): 1/4, B/L PT PULSES (B): 2/4, B/L Nails NAILS are: Elongated, overg rown, dystrophic, lytic, greater than 3mm thick, discolored and friable with crumbly malodorous subungual debris, with dull to no pain on palpation due to neuropathy, T4, T3, T2 T7 T8, T9
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
--- OUTSIDE RECORDS SUMMARY | 2024-11-03 08:47 | XMS_ITS ---
Author Organization [facility] Shivam angelique Joshua Address [address] [place] [address] Care Team Providers Care Feed Crusher Name Role Phone Gabriella Ramey MD, Keith Primary Care Provider Unavail able Black, Suzette Unavailable [phone] Allergies No Known Allergies REASON FOR VISIT At Risk Footcare, Foot pain Medications Medication SIG (Take, Route, Frequency, Duration) Notes Start Date End Date Status Entresto 49-51 MG 1 tablet Orally Twic e a day Not-Taking Cephalexin 500 MG 1 capsule Orally anali ry 12 hours for 10 days Not-Taking Farxiga 10 MG 1 tablet Orally Once a day Not-Taking oxyCODONE ER Not-Skyler ing Lisinopril 40 MG 1 tablet Orally Once a day Not-Taking Aspirin Active Iron Active Extra Depth Orthopedic Shoes (1 Pair) with Customized Heat Molded Multidensity Innersoles (3 Pair) as directed Dx: NIDDM/Polyneuropathy (E11.42), Hammertoe Foot Deformity (M20.41,M20.42), Preulcerative Skin Lesion(s) (L85.1 Active Extra Depth Orthopedic Shoes (1 Pair) with Customized Heat Molded Multidensity Innersoles (3 Pair) as directed Dx: NIDDM/Polyneuropathy (E11.42), Hammertoe Foot Deformity (M20.41,M20.42), Preulcerative Skin Lesion(s) (L85.1 Active Pantoprazole Sodium 40 MG Orally Active Amlodipine & Diet Manage Prod Active glipiZIDE 5 MG as directed Orally twice a day Active Atropine Sulfate Act ruma Tamsulosin HCl Activ e Carisoprodol 350 MG Orally Active Januvia 100 MG 1 tablet Orally Once a day Active Carvedilol 12.5 MG Orally A ctive Metformin & Diet Manage Prod Active Atorvastatin Calcium 80 MG 1 tablet Orally Once a day Active DULoxetine HCl 60 MG Orally Active Spironolactone 25 MG 1 tablet Orally Onc e a day Active Clopidogrel Bisulfate Not-Taking Social History Tobacco Use: Social History Observation [...] user? 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 Assessments Encounter Date Diagnosis (ICD Code) Assessment Notes Treatment Notes Treatment Clinical Notes Section Notes 03/15/2024 Type 2 diabetes mellitus with diabetic polyneuropathy (ICD-10 - E11.42) 03/15/2024 Tinea unguium (ICD-10 - B35.1) 03/15/2024 Pain in right foot (ICD-10 - M79.671) 03/15/2024 Pain in right ankle and joints of right foot (ICD-10 - M25.571) 03/15/2024 Bursitis of right foot (ICD-10 - M77.51) 03/15/2024 Osteoarthritis of midtarsal joint of right foot (ICD-10 - M19.071) 03/15/2024 Other Plan Of Treatment Pending Test Test Name Order Date 26191-UZQPDVX NAIL, 6 OR MORE 03/15/2024 25097-MXQP SKIN LESIONS, OVER 4 03/15/20 24 Next Appt Details Follow Up: prn, Reason: Provider Name:Suzette Ortega , 12/20/2024 08:00:00 AM, [address] [facility], [place], [address], Procedure Notes * Category Sub-Category Detail Notes Debride Nail 6-10 Nail debridement Nail debridem ent performed extensively to reduce/remove overall nail length and girth, subungual debris, and necrotic tissue, by manual and electrical means with use of a nail nipper and/or dremel, to more viable healthy nail plate or bed tissue 6-10. Silver nitrate used for any petechial bleeding as necessary. Patient chooses, no pharmaceutical tx (21895) Keratoma Treatment Parring or Cutting o f Benign Hyperkeratotic Lesion(s) 77277 ( More than 4 Lesions ) - The Benign hyperkeratotic lesions, as described above were pared, and/or cut utilizing a sterile 15 blade, tissue nippers, and/or dremel Progress Notes * Roxanne OSHEAOB:1950 (74 yo M)Acc No.[id number]:03/15/2024 Progress Note Patient:?Beryl Oshea Provider:?Suzette Ortega DPM :1950???Age:74 Y???Sex:Male Mika e:03/15/2024 Address:[address] [place], [place] [id number] Pcp:Keith Quiroz Jr, MD Subjective: * Chief Complaints: * ???At Risk FootcareFoot pain * HPI: ???At Risk footcare:?Pt States Last PCP Visit:?Date?01/07/2024 ???Foot Pain:?Nature:?aching, stiffness,?.?Location:?Top, Midfoot, RIGHT.?Duration:?several weeks.?Onset:?denies trauma.?Course:?worse.?Treatments:?rest/alter normal daily activity.? * Medical History:? * Surgical History:?skin cance r 2017nose sx gall bladder 07/2020cataract removal left and right 12/2022heart defibralator 12/2022 * Hospitalization/Major Diagno stic Procedure:?Wing- believed he had a heart attack heart issues covid 07/2022 * Family History:?Mother: dece ased, foot problems, diagnosed with Other malignant neoplasm of unspecified site.?Father: .? * Social History:?Tobacco Use:?Tobacco Use/Smoking?Are you a:?former [...] Exercise. ?Marital status: . ?Occupation: Retired. * Medications:?TakingSpironola ctone 25 MG Tablet 1 tablet Orally Once a dayCarvedilol 12.5 MG Tablet Orally Januvia 100 MG Tablet 1 tablet Orally Once a dayAtorvastatin Calcium 80 MG Tablet 1 tablet Orally Once a dayMetformin & Diet Manage Prod DULoxetine HCl 60 MG Capsule Delayed Release Sprinkle Orally Amlodipine & Diet Manage Prod glipiZIDE 5 MG Tablet as directed Orally twice a dayTamsulosin HCl Atropine Sulfate Carisoprodol 350 MG Tablet Orally Pantoprazole Sodium 40 MG Tablet Delayed Release Orally Iron Aspirin Extra Depth Orthopedic Shoes (1 Pair) with Customized Heat Molded Multidensity Innersoles (3 Pair) as directed Dx: NIDDM/Polyneuropathy (E11.42), Hammertoe Foot Deformity (M20.41,M20.42), Preulcerative Skin Lesion(s) (L85.1Extra Depth Orthopedic Shoes (1 Pair) with Customized Heat Molded Multidensity Innersoles (3 Pair) as directed Dx: NIDDM/Polyneuropathy (E11.42), Hammertoe Foot Deformity (M20.41,M20.42), Preulcerative Skin Lesion(s) (L85.1Taking Spironolactone 25 MG Tablet 1 tablet Orally Once a dayTaking Carvedilol 12.5 MG Tablet Orally Taking Januvia 100 MG Tablet 1 tablet Orally Once a dayTaking Atorvastatin Calcium 80 MG Tablet 1 tablet Orally Once a dayTaking Metformin & Diet Manage Prod Taking DULoxetine HCl 60 MG Capsule Delayed Release Sprinkle Orally Taking Amlodipine & Diet Manage Prod Taking glipiZIDE 5 MG Tablet as directed Orally twice a dayTaking Tamsulosin HCl Taking Atropine Sulfate Taking Carisoprodol 350 MG Tablet Orally Taking Pantoprazole Sodium 40 MG Tablet Delayed Release Orally Taking Iron Taking Aspirin Taking Extra Depth Orthopedic Shoes (1 Pair) with Customized Heat Molded Multidensity Innersoles (3 Pair) as directed Dx: NIDDM/Polyneuropathy (E11.42), Hammertoe Foot Deformity (M20.41,M20.42), Preulcerative Skin Lesion(s) (L85.1Taking Extra Depth Orthopedic Shoes (1 Pair) with Customized Heat Molded Multidensity Innersoles (3 Pair) as directed Dx: NIDDM/Polyneuropathy (E11.42), Hammertoe Foot Deformity (M20.41,M20.42), Preulcerative Skin Lesion(s) (L85.1Not- Taking/PRNEntresto 49-51 MG Tablet 1 tablet Orally Twice [...] MG Tablet 1 tablet Orally Once a dayNot- Taking/PRN oxyCODONE ER Not-Taking/PRN Clopidogrel Bisulfate Medication List reviewed and reconciled with the patient * Allergies:?N.K.D.A.yes[Aller gies Verified] Objective: * Vitals:?Ht: 6ft, Wt: 210, BM I:28.48, Shoe size: 10, BS: 138. * ???Past Orders: ???Lab:HEMOGLOBIN A1C (GLYCO HEMOGLOBIN) (Order Date - 10/08/2023) (Collection Date - 10/08/2023) ? Value Reference Range ?HEMOGLOBIN A1C (HH) 6.9 * Examination: ???Ophthalmology Referral: ?DIABETES EYE EXAM?Diabetic Retinopathy Screening:?Yes 10/2023?General Examination: ?GENERAL APPEARANCE:?Reveals a pleasant, alert, well nourished, well- developed, well hydrated individual, who demonstrates proper attention to hygiene/body habitus, and is in no acute distress, Pt serves as own historian for office visit today.?ORIENTED:?person, place, and time.?Vascular: ?DP PULSES:?09/03, B/L.?PT PULSES:?2/4, B/L.?Neurological: ?SENSORY:?Neurological exam demonstrates, reduced light touch sensation, reduced sharp/dull pin prick discrimination , reduced vibration sensation, 5.07 monofilament test performed at plantar aspects of 5 varied sites per foot shows sensation, absent at Forefoot, B/L,, Pt relates, pins and needles sensation, burning, especially in the evening, B/L.?TINEL'S COMPRESSION:? Negative, Intermediate dorsal cutaneous nerve distribution, Medial dorsal cutaneous nerve distribution, Deep peroneal nerve distribution, Right.?Nails: ?NAILS are:?Elongated, overgrown, dystrophic, lytic, greater than 3mm thick, discolored and friable with crumbly malodorous subungual debris, with dull to no pain on palpation due to neuropathy, ?T4, T3, T6, T7 T8, T9.?Dermatologic: ?SKIN FINDINGS:?Skin exam reveals normal texture, elasticity, and tugor. There are no masses. The interspaces are clear, Skin exam reveals Keratotic lesion(s) located at, SUB MTH (s),5 B/L, 1, B/L , , T5 ,.?Orthopedic: ?FOOT MORPHOLOGY:?exostosis , dorsal , midfoot , Pain on palpation right.? Assessment: * Assessment: 1.?Tinea unguium - B35.1?2.? Type 2 diabetes mellitus with diabetic polyneuropathy - E11.42?3.?Pain in right foot - M79.671?4.?Pain in right ankle and joints of right foot - M25.571?5.?Bursitis of right foot - M77.51?6.?Osteoarthritis of midtarsal joint of right foot - M19.071? Plan: * Treatment: 2.?Type 2 diabetes mellitus with diabetic polyneuropathy?Procedure: 21192-FFWK SKIN LESIONS, OVER 4 * Procedures:?Debride Nail 6-10:?Nail debridement?Nail debridement performed extensively to reduce/remove overall nail length and girth, subungual debris, and necrotic tissue, by manual and electrical means with use of a nail nipper and/or dremel, to more viable healthy nail plate or bed tissue 6-10. Silver nitrate used for any petechial bleeding as necessary. Patient chooses, no pharmaceutical tx (94779).?Keratoma Treatment:?Parring or Cutting of Benign Hyperkeratotic Lesion(s)?07751 ( More than 4 Lesions ) - The Benign hyperkeratotic lesions, as described above were pared, and/or cut utilizing a sterile 15 blade, tissue nippers, and/or dremel.? * Procedure Codes:?08077 DEBRI DE NAIL, 6 OR MORE, Modifiers: XS 08490 TRIM SKIN LESIONS, OVER 4, Modifiers: XS * Preventive Medicine:? ??Counseling:?Discussion:?-13: Office or other outpatient visit for the evaluation and management of an established patient, which required a medically appropriate history and/or examination and LOW level of DECISION MAKING for: 1 STABLE ACUTE UNCOMPLICATED PROBLEM, 2 OR MORE MINOR PROBLEMS, OR 1 STABLE CHRONIC PROBLEM, THAT POSE(S) A LOW RISK FOR MORBIDITY/MORTALITY. The visit on the day of the [...] have encouraged the patient to call the office.?Arthritis:?The patient was counseled on the various etiologies for their Arthritis including genetic, history of injury or trauma, abnormal foot biomechanics leading to excessive joint wear, and use/overuse. We discussed the various treatment options from no treatment, to topical analgesics such as Biofreeze gel, Aspercream, Voltaren gel, Lidoderm patches, CBD oils, THC creams, and Custom-compounded topical cream preparations to natural oral products such as Glucosamine Sulfate/Chondroitin/MSM/Collegen to analgesic Tylenol, to anti-inflammatory medications such as Ibuprofen/Naproxen, and the use of oral steroids if needed. Cardiac, Kidney, and GI issues were discussed RE: potential complications of oral anti-inflammatories. We discussed several other treatment options consisting of accom shoes, supportive innersoles, AFO bracing/support, cortisone injection therapy, and surgical resection of the arthritic joint(s) or fusion reconstruction if necessary. We discussed the advantages and disadvantages of conservative (vs) surgical treamtents including pain relief, improved function/activities of daily life, return to exercise to failure, expense, systemic complications, infection, [id number], prolongued postop course. Patient questions re: the various treatment options available, their successes and potential failures, and joint terminal attack controller effects were discussed and the answers were verbally confirmed understood, Recommended Topical analgesics including Biofreeze/Aspercream/Voltaren gel.? * Follow Up:?prn * Images: * Sign off status: Completed true * Provider:Krishna Ortega DPM Date:?2023 Generated for Gabbi saavedra/Milka/Rosemary on:?11/03/2024 08:47 AM EST History and Physical Notes * HPI (History of Present Illness) Category Sub-Category Detail Notes Category Not es At Risk footcare Pt States Last PCP Visit: Date: 4 Foot Pain Nature: aching, stiffness, Location: Top, Midfoot, RIGHT Duration: several weeks Onset: denies trauma Course: worse Treatments: rest/alter normal da angeline activity Examination Category Sub-Category Detail Notes Category Not es Neurological SENSORY: Neurological exa m demonstrates, reduced light touch sensation, reduced sharp/dull pin prick discrimination , reduced vibration sensation, 5.07 monofilament test performed at plantar aspects of 5 varied sites per foot shows sensation, absent at Forefoot, B/L,, Pt relates, pins and needles sensation, burning, especially in the evening, B/L TINEL'S COMPRESSION: Negative, Intermedi ate dorsal cutaneous nerve distribution, Medial dorsal cutaneous nerve distribution, Deep peroneal nerve distribution, Right Dermatologic SKIN FINDINGS: Skin exam reveal s normal texture, elasticity, and tugor. There are no masses. The interspaces are clear, Skin exam reveals Keratotic lesion(s) located at, SUB MTH (s),5 B/L, 1, B/L , , T5 , ULCER: Orthopedic FOOT MORPHOLOGY: exostosis , michelle krista , midfoot , Pain on palpation right General Examination GENERAL APPEARANCE: Reveals a pleasant, alert, well nourished, well-developed, well hydrated individual, who demonstrates proper attention to hygiene/body habitus, and is in no acute distress, Pt serves as own historian for office visit today ORIENTED: person, place, and t yan Ophthalmology Referral DIABETES EYE EXAM Diabeti c Retinopathy Screening:: Yes 10/2023 Vascular DP PULSES (B): 1/4, B/L PT PULSES (B): 2/4, B/L Nails NAILS are: Elongated, overg rown, dystrophic, lytic, greater than 3mm thick, discolored and friable with crumbly malodorous subungual debris, with dull to no pain on palpation due to neuropathy, T4, T3, T6, T7 T8, T9
--- OUTSIDE RECORDS SUMMARY | 2024-11-03 08:48 | XMS_ITS | Continuity of Care Document ---
Author Organization [facility] Address [address] [place] [address] Phone [phone] Care Team Providers Care Branch Assistant Name Role Phone Keith Quiroz M.D. Care Team Information Financial Rep [phone] Problems Active Problems Provider Date Diabetes mellitus Leonel Ruiz M.D. Onset: 1 Essential hypertension Leonel Ruiz M.D. Ons et: 06/27/2022 Hypercholesterolemia Leonel Ruiz M.D. Onset : 06/27/2022 Peripheral arterial occlusive disease Leonel bhagat M.D. Onset: 06/27/2022 Olvera's esophagus Leonel Ruiz M.D. Onset: 06/27/2022 Asymptomatic coronary heart disease Leonel becker M.D. Onset: 06/27/2022 Anemia Leonel Ruiz M.D. Onset: Coronary arteriosclerosis Leonel Ruiz M.D. Onset: 10/10/2022 Congestive heart failure Leonel Ruiz M.D. O nset: 10/10/2022 Social History Type Date Description Comments Sex Unknown ETOH Use Occasionally consumes alcoho l Tobacco Use Start: Unknown End: Unknown Patient is a former smoker Smoking Status Reviewed: 12/17/22 Patient is a former smoker Allergies and adverse reactions Description No Known Drug Allergies Medications Active Medications SIG Qnty Indications Ordering Provider Date Fluticasone Qutfogkmib06nvm/Act Suspension use 1 spray in each daily 16gm Leonel Ruiz M.D. 02/10/2024 Aiwukljssyvol969kg Tablets Take 1 Tablet By Mouth Every Day as Directed 90tabs Leonel Ruiz M.D. 08/12/2023 Atorvastatin Xklfxly58mo Tablets 1 by mouth every day 90tashaq Ruiz M.D. 08/05/[address] Part take 1 capsule by mouth daily 30 days 90yons Leonel Ruiz M.D. 11/11/2022 Ykuaiiafosxevb14bd Tablets 1 by mouth every day 90tabs Leonel Ruiz M.D. 10/10/2022 Khqbdgaor130(65Fe) mg Tablets 1 qd Leonel Ruiz M.D. 10/10/2022 Hsmfmajyw7yu Tablets Take 1 Tablet Twice A Day 180tashaq Lopez M.D. 06/27/2022 Onazmhg811by Tablets Take 1 Tablet Once Daily 90tabs Cait Lopez M.D. 06/27/2022 Aspirin Adult Low Xttm84bm Tablets DR 1 by mouth every day Leonel Ruiz M.D. 06/27/2022 Metformin LCY0656no Tablets Take 1 Tablet Twice A Day. 180tashaq Lopez M.D. 04/01/2022 Igomxutkdx55.5mg Tablets 1 by mouth twice a day Shoaib Rosales M.D Pantoprazole Zldpso32lp Tablets DR 1 by mouth every day 30tabs Unknown Tamsulosin HCL0.4mg Capsules 2 cap by mouth every night Hugo Pearl Amlodipine Zfdukxpt7yo Tablets 1 by mouth every day 90tabs Unknown Oiqpfcrpz977qe Tablets Take 1 Tablet By Mouth Three Times Daily as Needed 90tabs Leonel Ruiz M.D. Hydralazine ZXM66ut Tablets 1 by mouth twice a day Unknown Vital Signs Date Vital Result Comment 10/14/2024 8:29am BP Systolic 104 mmHg BP Diastolic 60 mmHg Heart Rate 94 /min Height 71 inches 5'11 Weight 209.00 lb BMI (Body Mass Index) 29.1 kg/m2 Results Test Acquired Date Facility Test Result H/L Range Note Laboratory test finding 10/14/2024 Inhouse Glucose Fingerstick 158 Laboratory test finding 06/24/2024 Inhouse Glucose Fingerstick 203 Laboratory test finding 05/25/2024 [facility] Hemoglobin A1c 7.3 % High 4.8-5.6 1 Laboratory test finding 03/11/2024 Inhouse Glucose Fingerstick 169 Laboratory test finding 02/02/2024 [facility] Hemoglobin A1c 7.1 % High 4.8-5.6 2 Laboratory test finding 11/10/2023 Inhouse Glucose Fingerstick 116 Comprehensive Metabolic Panl 10/26/2023 [facility] Glucose 158 mg/dL High (70-99) BUN 21 mg/dL (8-23) Creatinine 1.4 mg/dL High (0.7-1.2 ) Sodium 138 mmol/L (133-145 ) Potassium 5.2 mmol/L (3.6-5.2 ) Chloride 103 mmol/L (98-107) Bicarbonate 24 mmol/L (22-29) Anion Gap 11 (4-17) Albumin 4.3 GM/DL (3.4-4.8 ) Calcium 9.5 mg/dL (8.6-10. 5) Bilirubin,Total 0.4 mg/dL (0-1.2 ) Total Protein 7.1 GM/DL (6.2-8.2 ) Ag Ratio 1.5 Ast 25 U/L (0-40) Alk Phos 73 U/L (40-129) Alt 39 U/L (0-41) Estimated GFR Creatinine 51 ML/MIN/1.73 M2 3 Lipid Panel 10/26/2023 [facility] Cholesterol, Total 102 mg/dL (<200) Triglyceride 99 mg/dL (<150) HDL Chol 37 mg/dL Low (>39) LDL Cholesterol, Calculated 45 mg/dL (0-130) Non HDL Cholesterol (Calc) 65 mg/dL (<160) Laboratory test finding 10/26/2023 [facility] Hemoglobin A1c 6.9 % High (4.0-5.6 ) 4 Complete Abc With Diff 10/26/2023 [facility] WBC 10.3 K/MM3 (4.0-11. 0) RBC 3.97 M/MM3 Low (4.70-6. 10) HGB 12.1 GM/DL Low (13.7-17 .1) HCT 38.1 % Low (40.5-50 .0) MCV 96.0 FL High (80.0-94 .0) MCH 30.5 pg (27.0-34 .0) MCHC 31.8 g/dL Low (33.0-37 .0) PLT 185 K/MM3 (150-460 ) RDW-SD 43.5 FL (<47.0) MPV 10.9 FL (9.4-12. 4) Automated NRBC 0.0 #/100WBC'S Abs. NRBC 0.0 K/MM3 Neut # 7.5 K/MM3 High (1.3-7.0 ) Lymph # 1.4 K/MM3 (0.8-3.1 ) [place]# 1.2 K/MM3 (0.4-1.3 ) Eo # 0.0 K/MM3 (0.0-0.4 ) Baso # 0.1 K/MM3 (0.0-0.1 ) Neut 73.4 % (44-76) Lymph 13.7 % Low (15-43) Monocyte 12.0 % High (4.5-10. 5) Eo 0.0 % (0-6) Baso 0.9 % (0-2) RBC Morphology MODERATE 5 PLT Estimate ADEQUATE Urinary Microalbumin 10/26/2023 [facility] Micro-Albumin 38.0 mg/L High (<20) 6 Malb/Creat Ratio 10.6 MG/GM (0-20) Urine Creat For Micro Albumin 353.3 mg/dL Laboratory test finding 07/29/2023 [facility] Hemoglobin A1c 6.9 % High (4.0-5.6 ) 7 Laboratory test finding 12/09/2022 [facility] Hemoglobin A1c 5.9 % High (4.0-5.6 ) 8 Complete Abc With Diff 12/09/2022 [facility] WBC 9.6 K/MM3 (4.0-11. 0) RBC 3.74 M/MM3 Low (4.70-6. 10) HGB 10.8 GM/DL Low (13.7-17 .1) HCT 36.0 % Low (40.5-50 .0) MCV 96.3 FL High (80.0-94 .0) MCH 28.9 pg (27.0-34 .0) MCHC 30.0 g/dL Low (33.0-37 .0) PLT 266 K/MM3 (150-460 ) RDW-SD 49.5 FL High (<47.0) MPV 10.9 FL (9.4-12. 4) Automated NRBC 0.0 #/100WBC'S Abs. NRBC 0.0 K/MM3 Neut # 5.9 K/MM3 (1.3-7.0 ) Lymph # 1.9 K/MM3 (0.8-3.1 ) [place]# 1.4 K/MM3 High (0.4-1.3 ) Eo # 0.3 K/MM3 (0.0-0.4 ) Baso # 0.1 K/MM3 (0.0-0.1 ) Abs. Imm Gran 0.1 K/MM3 Neut 61.8 % (44-76) Lymph 19.3 % (15-43) Monocyte 15.0 % High (4.5-10. 5) Eo 2.9 % (0-6) Baso 0.5 % (0-2) Imm Gran 0.5 % Laboratory test finding 10/10/2022 Inhouse Glucose Fingerstick 212 Laboratory test finding 08/07/2022 [facility] Hemoglobin A1c 6.5 % High (4.0-5.6 ) 9 Complete Abc With Diff 08/07/2022 [facility] WBC 9.0 K/MM3 (4.0-11. 0) RBC 3.67 M/MM3 Low (4.70-6. 10) HGB 10.4 GM/DL Low (13.7-17 .1) HCT 33.2 % Low (40.5-50 .0) MCV 90.5 FL (80.0-94 .0) MCH 28.3 pg (27.0-34 .0) MCHC 31.3 g/dL Low (33.0-37 .0) PLT 231 K/MM3 (150-460 ) RDW-SD 45.4 FL (<47.0) MPV 10.7 FL (9.4-12. 4) Automated NRBC 0.0 #/100WBC'S Abs. NRBC 0.0 K/MM3 Neut # 6.1 K/MM3 (1.3-7.0 ) Lymph # 1.5 K/MM3 (0.8-3.1 ) [place]# 1.2 K/MM3 (0.4-1.3 ) Eo # 0.2 K/MM3 (0.0-0.4 ) Baso # 0.1 K/MM3 (0.0-0.1 ) Abs. Imm Gran 0.0 K/MM3 Neut 67.9 % (44-76) Lymph 16.3 % (15-43) Monocyte 13.1 % High (4.5-10. 5) Eo 1.8 % (0-6) Baso 0.6 % (0-2) Imm Gran 0.3 % Laboratory test finding 08/07/2022 [facility] Ferritin 16 NG/ML (16-294) Laboratory test finding 06/27/2022 Inhouse Glucose Fingerstick 105 Urinary Microalbumin 06/16/2022 [facility] Micro-Albumin 25.3 mg/L High (<20) 10 Malb/Creat Ratio 9.0 MG/GM (0-20) Urine Creat For Micro Albumin 281.6 mg/dL Complete Abc With Diff 06/16/2022 [facility] WBC 9.7 K/MM3 (4.0-11. 0) RBC 3.78 M/MM3 Low (4.70-6. 10) HGB 11.0 GM/DL Low (13.7-17 .1) HCT 35.8 % Low (40.5-50 .0) MCV 94.7 FL High (80.0-94 .0) MCH 29.1 pg (27.0-34 .0) MCHC 30.7 g/dL Low (33.0-37 .0) PLT 264 K/MM3 (150-460 ) RDW-SD 42.9 FL (<47.0) MPV 10.8 FL (9.4-12. 4) Automated NRBC 0.0 #/100WBC'S Abs. NRBC 0.0 K/MM3 Neut # 6.5 K/MM3 (1.3-7.0 ) Lymph # 1.7 K/MM3 (0.8-3.1 ) [place]# 1.3 K/MM3 (0.4-1.3 ) Eo # 0.2 K/MM3 (0.0-0.4 ) Baso # 0.0 K/MM3 (0.0-0.1 ) Abs. Imm Gran 0.0 K/MM3 Neut 66.5 % (44-76) Lymph 17.8 % (15-43) Monocyte 12.8 % High (4.5-10. 5) Eo 2.2 % (0-6) Baso 0.4 % (0-2) Imm Gran 0.3 % Comprehensive Metabolic Panl 06/16/2022 [facility] Glucose 140 mg/dL High (70-99) BUN 14 mg/dL (8-23) Creatinine 1.1 mg/dL (0.7-1.2 ) Sodium 137 mmol/L (133-145 ) Potassium 4.7 mmol/L (3.6-5.2 ) Chloride 99 mmol/L (98-107) Bicarbonate 28 mmol/L (22-29) Anion Gap 10 (4-17) Albumin 4.4 GM/DL (3.4-4.8 ) Calcium 9.9 mg/dL (8.6-10. 5) Bilirubin,Total 0.3 mg/dL (0-1.2 ) Total Protein 7.0 GM/DL (6.2-8.2 ) Ag Ratio 1.7 Ast 17 U/L (0-40) Alk Phos 70 U/L (40-129) Alt 16 U/L (0-41) Estimated GFR Creatinine 73 ML/MIN/1.73 M2 11 Lipid Panel 06/16/2022 [facility] Cholesterol, Total 93 mg/dL (<200) Triglyceride 87 mg/dL (<150) HDL Chol 33 mg/dL Low (>39) LDL Cholesterol, Calculated 43 mg/dL (0-130) Non HDL Cholesterol (Calc) 60 mg/dL (<160) Laboratory test finding 06/16/2022 [facility] Hemoglobin A1c 6.4 % High (4.0-5.6 ) 12 1 Prediabetes: 5.7 - 6 .4 Diabetes: >6.4 Glycemic control for adults with diabetes: <7.0 2 Prediabetes: 5.7 - 6 .4 Diabetes: >6.4 Glycemic control for adults with diabetes: <7.0 3 Creatinine based est imated glomerular filtration (eGFR) in adults is calculated using the National Kidney Foundation recommended 2020 CKD-EPI equation. Estimates GFR from serum creatinine, age and sex. 4 MONITORING: In known diabetic patients, hemoglobin A1c targets should be discussed with health care provider. DIAGNOSTIC USE: The [place] Diabetes Association (ADA) and the World Health Organization (WHO) recommend the use of HbA1c to diagnose diabetes using a threshold of 6.5%. Patients who have an HbA1c between 5.7% and 6.4% are considered at increased risk for developing diabetes in the future. CAUTION: Falsely low HbA1c results may be observed in patients with hemolytic anemia, homozygous forms of abnormal hemoglobin (e.g. SS, CC, SC), , recent blood loss or hemoglobin F greater than 7%. Fructosamine may be used as an alternate test in these cases. REFERENCE: ADA: Standards of Medical Care in Diabetes 2020, The Journal of Clinical and Applied Research and Education Volume 43, Supplement 1 5 ELLIPTOCYTES MODERATE POIKILOCYTOSIS FEW OVALOCYTES 6 The urine microalbum in test is designed to monitor renal function. When screening for Bence Tirado proteinuria, urine electrophoresis is recommended. 7 MONITORING: In known diabetic patients, hemoglobin A1c targets should be discussed with health care provider. DIAGNOSTIC USE: The [place] Diabetes Association (ADA) and the World Health Organization (WHO) recommend the use of HbA1c to diagnose diabetes using a threshold of 6.5%. Patients who have an HbA1c between 5.7% and 6.4% are considered at increased risk for developing diabetes in the future. CAUTION: Falsely low HbA1c results may be observed in patients with hemolytic anemia, homozygous forms of abnormal hemoglobin (e.g. SS, CC, SC), , recent blood loss or hemoglobin F greater than 7%. Fructosamine may be used as an alternate test in these cases. REFERENCE: ADA: Standards of Medical Care in Diabetes 2020, The Journal of Clinical and Applied Research and Education Volume 43, Supplement 1 8 MONITORING: In known diabetic patients, hemoglobin A1c targets should be discussed with health care provider. DIAGNOSTIC USE: The [place] Diabetes Association (ADA) and the World Health Organization (WHO) recommend the use of HbA1c to diagnose diabetes using a threshold of 6.5%. Patients who have an HbA1c between 5.7% and 6.4% are considered at increased risk for developing diabetes in the future. CAUTION: Falsely low HbA1c results may be observed in patients with hemolytic anemia, homozygous forms of abnormal hemoglobin (e.g. SS, CC, SC), , recent blood loss or hemoglobin F greater than 7%. Fructosamine may be used as an alternate test in these cases. REFERENCE: ADA: Standards of Medical Care in Diabetes 2020, The Journal of Clinical and Applied Research and Education Volume 43, Supplement 1 9 MONITORING: In known diabetic patients, hemoglobin A1c targets should be discussed with health care provider. DIAGNOSTIC USE: The [place] Diabetes Association (ADA) and the World Health Organization (WHO) recommend the use of HbA1c to diagnose diabetes using a threshold of 6.5%. Patients who have an HbA1c between 5.7% and 6.4% are considered at increased risk for developing diabetes in the future. CAUTION: Falsely low HbA1c results may be observed in patients with hemolytic anemia, homozygous forms of abnormal hemoglobin (e.g. SS, CC, SC), , recent blood loss or hemoglobin F greater than 7%. Fructosamine may be used as an alternate test in these cases. REFERENCE: ADA: Standards of Medical Care in Diabetes 2020, The Journal of Clinical and Applied Research and Education Volume 43, Supplement 1 10 The urine microalbum in test is designed to monitor renal function. When screening for Bence Tirado proteinuria, urine electrophoresis is recommended. 11 Creatinine based est imated glomerular filtration (eGFR) in adults is calculated using the National Kidney Foundation recommended 2020 CKD-EPI equation. Estimates GFR from serum creatinine, age and sex. 12 MONITORING: In known diabetic patients, hemoglobin A1c targets should be discussed with health care provider. DIAGNOSTIC USE: The [place] Diabetes Association (ADA) and the World Health Organization (WHO) recommend the use of HbA1c to diagnose diabetes using a threshold of 6.5%. Patients who have an HbA1c between 5.7% and 6.4% are considered at increased risk for developing diabetes in the future. CAUTION: Falsely low HbA1c results may be observed in patients with hemolytic anemia, homozygous forms of abnormal hemoglobin (e.g. SS, CC, SC), , recent blood loss or hemoglobin F greater than 7%. Fructosamine may be used as an alternate test in these cases. REFERENCE: ADA: Standards of Medical Care in Diabetes 2020, The Journal of Clinical and Applied Research and Education Volume 43, Supplement 1 Medical Devices Description No Information Available Encounters Type Date Location Provider Dx Diagnosis Office Visit 10/14/2024 8:15a Main Office MERT Cunningham E11.9 Type 2 diabet es mellitus without complications I10 Essential (primary) hypertension I25.89 Other forms of chron ic ischemic heart disease E78.00 Pure hypercholestero lemia, unspecified Assessments Date Code Description Provider 10/14/2024 E11.9 Type 2 diabetes mellitus wit hout complications MERT Cunningham 10/14/2024 I10 Essential (primary) hyperten mariam MERT Cunningham 10/14/2024 I25.89 Asymptomatic coronary heart disease MERT Cunningham 10/14/2024 E78.00 Pure hypercholesterolemia, u nspecified MERT Cunningham Plan of Treatment Future Appointment(s):* 02/13/2025 8:15 am - MERT Cunningham at Main Office 03/11/2024 - MERT Cunningham* E11.9 Type 2 diabetes mellitus without complications * I10 Essential (primary) hypertension * E78.00 Pure hypercholesterolemia, unspecified * I25.89 Asymptomatic coronary heart disease * I77.9 Peripheral arterial occlusive disease * I50.9 Congestive heart failure Functional Status Description No Information Available Mental Status Description No Information Available Referrals Description No Information Available
--- OUTSIDE RECORDS SUMMARY | 2024-11-03 08:48 | XMS_ITS | Encounter Summary ---
Author Organization [facility] Address [address] [place] [address] Care Team Providers Care Television Installer Name Role Phone Keith Quiroz MD Primary Care Provider [phone] Encounter Details Date Type Department Care Team (Late st Contact Info) Description 10/04/2024 4:30 PM EST [facility]illary [facility] [address] [facility] [address] [place] [phone] Social History Tobacco Use Types Packs/Day Years [...] on file Sexual Orientation Not on file documented as of this encounter Plan of Treatment Upcoming Encounters Date Type Department Care Team (Late Contact Info) Description 02/01/2025 8:30 AM EDT Ancillary Procedure [facility] [address] [facility] [address] [place] [id number] 05/02/2025 8:50 AM EDT Office Visit [facility] Cardiology [address] [place] [address] Shoaib Rosales MD [address] [place] [address] [address] [place] [address] documented as of this encounter Procedures Procedure Name Priority Date/Time Associated Diagnosis Comments CARDIAC DEVICE CHECK- REMOTE- MURJ Routine 10/04/2024 4:27 PM EST documented in this encounter Results * Cardiac device check - Remote- MURJ (10/04/2024 4:27 PM EST) Date Time Interrogation Session [id number] CV DEVICE CHECK Type Interrogation Session Remote CV DEVICE CHECK Implantable Pulse Generator Metal Framer BIO CV DEVICE CHECK Implantable Pulse Generator Type ICD CV DEVICE CHECK Implantable Pulse Generator Model Acticor 7 VR-T DX CV DEVICE CHECK Implantable Pulse Generator Serial Number [id number] CV DEVICE CHECK Implantable Pulse Generator Implant Date 20221226 CV DEVICE CHECK Battery Remaining Percentage 100.00 CV DEVICE CHECK Battery Voltage 3.120 CV D EVICE CHECK Battery LITHOGRAPHER HELPER Trigger 2.850 CV DEVICE CHECK Battery Status Beginning of Service CV DEVICE CHECK Capacitor Charge Time 8.900 CV DEVICE CHECK Jaden Statistic RV Percent Paced 0.00 CV DEVICE CHECK Atrial Tachy Statistic AT/AF [place] Percent 0.00 CV DEVICE CHECK Lead Channel Sensing Intrinsic Amplitude 8.000 CV DEVICE CHECK Lead Channel Setting Sensing Sensitivity 0.40 CV DEVICE CHECK Lead Channel RA Pacing Threshold Date 2024-09-26 CV DEVICE CHECK Lead Channel Sensing Intrinsic Amplitude 19.500 CV DEVICE CHECK Lead Channel Setting Sensing Sensitivity 0.80 CV DEVICE CHECK Lead Channel Impedance Value 638 CV DEVICE CHECK Lead Channel Pacing Threshold Amplitude 0.500 CV DEVICE CHECK Lead Channel Pacing Threshold Pulse Width 0.4 CV DEVICE CHECK Lead Channel RV Pacing Threshold Date 2024-09-26 CV DEVICE CHECK Lead Channel Setting Pacing [...] CHECK Rate 200 CV DEVICE CHECK Therapies Burst,40.0J,40.0J ,40.0J x 6 CV DEVICE CHECK Zone Setting [...] Anatomical Region Laterality Modality Device Interroga tion 09/26/2024 12:4 5 AM EST Impressions 10/04/2024 12:59 PM EST Heart Failure Diagnostic: Stable * Heart failure diagnostics assessed through the device * Status: Stable * No overt HF present Narrative Procedure Note Ran Lackey MD - 10/04/2024 IMPRESSION: Heart Failure Diagnostic: Stable * Heart failure diagnostics assessed through the device * Status: Stable * No overt HF present Ran Lackey MD CV IMPLANTABLE CARDIAC DEV ICE PROCEDURES Final Result documented in this encounter Visit Diagnoses Not on filedocumented in this encounter Care Teams Television Installer Relationship Specialty Start Date End Date Keith Quiroz MD [address] [place] [address] PCP - General 05/31/24 documented as of this encounter
--- OUTSIDE RECORDS SUMMARY | 2024-11-03 08:48 | XMS_ITS | Encounter Summary ---
Author Organization [facility] Address [address] [place] [address] Care Team Providers Care Emergency Room Technician Name Role Phone Keith Quiroz MD Primary Care Provider [phone] Encounter Details Date Type Department Care Team (Late Contact Info) Description 11/02/2024 3:20 PM EST Ancillary Procedure [facility] Cardiology [facility] [address] [facility] [address] [place] [phone] Arrived Social History Tobacco Use Types Packs/Day Years [...] Description 02/01/2025 8:30 AM EDT Ancillary Procedure [facility] [address] [facility] [address] [place] [phone] 05/02/2025 8:50 AM EDT Office Visit [facility] Cardiology [address] [place] [address] Shoaib Rosales MD [address] [place] [address] [address] [place] [address] documented as of this encounter Procedures Procedure Name Priority Date/Time Associated Diagnosis Comments CARDIAC DEVICE CHECK- REMOTE- MURJ Routine 11/02/2024 3:17 PM EST documented in this encounter Results * Cardiac device check - Remote- MURJ (11/02/2024 3:17 PM EST) Date Time Interrogation Session [id number] CV DEVICE CHECK Type Interrogation Session RemoteScheduled CV DEVICE CHECK Implantable Pulse Generator [place] Performer BIO CV DEVICE CHECK Implantable Pulse Generator Type ICD CV DEVICE CHECK Implantable Pulse Generator Model Acticor 7 VR-T DX CV DEVICE CHECK Implantable Pulse Generator Serial Number [id number] CV DEVICE CHECK Implantable Pulse Generator Implant Date 20221226 CV DEVICE CHECK Battery Remaining Percentage 100.00 CV DEVICE CHECK Battery Voltage 3.120 CV D EVICE CHECK Battery DOWELING MACHINE OPERATOR Trigger 2.850 CV DEVICE CHECK Battery Status Beginning of Service CV DEVICE CHECK Capacitor Charge Time 8.900 CV DEVICE CHECK Jaden Statistic RV Percent Paced 0.00 CV DEVICE CHECK Atrial Tachy Statistic AT/AF [place] Percent 0.00 CV DEVICE CHECK Lead Channel [...] on filedocumented in this encounter Care Teams Emergency Room Technician Relationship Specialty Start Date End Date Keith Quiroz MD [address] [place] [address] PCP - General 05/31/24 documented as of this encounter
== END 2024-11-03 08:44 | disposition home or self-care (01) ==
PROVIDERS: PCP Internal Medicine Endocrinology, Diabetes & Metabolism; Visit Provider Urology
DX: N40.1 Benign prostatic hyperplasia with lower urinary tract symptoms (principal); N13.8 Other obstructive and reflux uropathy; R35.1 Nocturia; Z13.9 Encounter for screening, unspecified
CPT/HCPCS: 99214

== ENCOUNTER → 2024-11-03 08:23 | Outpatient (BNVA) | payer MEDICARE, SELFPAY | PROVIDERS: PCP Internal Medicine Endocrinology, Diabetes & Metabolism; Visit Provider Urology | DX: N40.1 Benign prostatic hyperplasia with lower urinary tract symptoms (principal); N13.8 Other obstructive and reflux uropathy; R35.1 Nocturia | CPT/HCPCS: 51798; 81003; 99212 ==